=== PATIENT | female | born 1975 | race Two or more races ===

== ENCOUNTER 2023-08-20 08:14 | Emergency (ER) | payer OTHER ==
[~2023-08-20] VITALS: Ht 157.5 cm; Wt 65.7 kg
[2023-08-20] MEDS ORDERED: ONDANSETRON HCL 4 MG/2 ML VIAL IV ONE (08:30)
[2023-08-20] MEDS ORDERED: SODIUM CHLORIDE 0.9% 1,000 ML IVB ONE (08:30)
[2023-08-20 08:41] LABS: Urine Bacteria NONE SEEN /hpf (None Seen); Urine Blood Negative /uL (Negative); Urine Clarity Clear (Clear); Urine Protein, UAD Negative (Negative); Urine Specific Gravity 1.002 (1.001-1.035); Urine Urobilinogen Normal (Negative); Urine WBC <1 /hpf (0 - 5); Urine pH 6.5 (5.0-8.0)
[2023-08-20 08:54] LABS: Urine Color Straw (Yellow)
[2023-08-20 09:02] LABS: INR 1.05 (0.9-1.15); Partial Thromboplastin Time 29.9 SEC (24.5-34.5)
[2023-08-20 09:04] VITALS: TEMP 98.1
[2023-08-20 09:05] VITALS: PULSE 86; RESP 20; O2SAT 94
[2023-08-20 09:07] LABS: Alanine Aminotransferase 55 U/L (7-40); Albumin 5.1 g/dL (3.2-4.8); Alkaline Phosphatase 104 U/L (46-116); Anion Gap 6 (5-15); Aspartate Aminotransferase 15 U/L (13-40); BUN/Creatinine Ratio 9.5 (10.0-20.0); Blood Urea Nitrogen 7 mg/dL (9-23); Calcium 9.8 mg/dL (8.7-10.4); Carbon Dioxide 25 mmol/L (20-30); Chloride 104 mmol/L (98-107); Glucose 122 mg/dL (74-106); Lipase 47 U/L (12-53); Magnesium 1.9 mg/dL (1.6-2.6); Potassium 3.8 mmol/L (3.5-5.1); Sodium 135 mmol/L (136-145)
[2023-08-20 09:08] LABS: Bilirubin, Total 0.7 mg/dL (0.2-1.0); Total Protein 7.7 g/dL (5.7-8.2)
[2023-08-20 09:13] LABS: Basophils # (auto) 0 10 ^3/uL (0-0.2); Basophils % (auto) 0.6 % (0.0-2.0); Eosinophils # (auto) 0.1 10 ^3/uL (0-0.8); Eosinophils % (auto) 1.2 % (0.0-7.0); Hematocrit 42.3 % (36.0-46.0); Lymphocytes # (auto) 2.1 10 ^3/uL (0.4-5.4); Mean Corpuscular Hgb Conc. 35.3 g/dL (32.0-36.0); Mean Corpuscular Volume 87.8 fL (80.0-100.0); Monocytes # (auto) 0.3 10 ^3/uL (0-1.3); Neutrophils # (auto) 3.1 10 ^3/uL (1.6-8.6); Neutrophils % (auto) 55.2 % (37.0-80.0); Nucleated Red Blood Cells % 0.3 %; Red Blood Cells 4.82 10^6/uL (4.0-5.20); Red Cell Distribution Width 13.2 % (11.8-14.3); White Blood Cell 5.6 10^3/uL (4.4-10.8)
[2023-08-20 10:00] VITALS: BP 108/76; PULSE 82; RESP 17; O2SAT 97
[2023-08-20] MEDS ORDERED: PANTOPRAZOLE 40 MG/10 ML VIAL INJ IV ONE (11:15)
== END 2023-08-20 11:52 | disposition home or self-care (01) ==
LOC: ER 08:14 → EEVIPCON 08:14 → ER 11:43
DX: R10.9 Unspecified abdominal pain (principal); R10.2 Pelvic and perineal pain; E78.5 Hyperlipidemia, unspecified; Z98.51 Tubal ligation status
CPT/HCPCS: 36415; 74176; 76705; 80053; 81001; 83690; 83735; 84702; 85025; 85610; 85730; 96361; 96374; 96375; 99285; C9113; J2405; J7030

== ENCOUNTER 2025-02-20 14:53 | Inpatient (IN) | payer BC, OTHER ==
[~2025-02-20] VITALS: Ht 152.4 cm; Wt 64.8 kg
[~2025-02-20 14:53] MED LIST: AUG875T PO; AZITTAB PO; BISM1CHW5 PO; GENT0.3S10 EACHEYE; MET500T PO; MUPI2OIN2 EX; PANT40T PO; SUCR1TAB31 OR; SUMA50TA2 PO; TETR-37 PO
--- NOTE | 2025-02-20 15:56 | ED.PDOC ---
GI ASSESSMENT HPI Comments Lucero HPI: Poor Historian. HPI: 49y F who presents to the ED for chief complaint of nausea and vomiting and near-syncope - per spouse, pt has been having flu-like symptoms with cough, congestion and green phlegm for the past 3-4 days - pt has also not been able to eat and drink anything or keep any food down and started to get associated RUQ and RLQ abdominal pain - pt over the past 2 days has started to feel nauseous and has been having mul tiple vomiting episodes since - pt this afternoon, while using restroom, felt weak and fell to the floor with associated lightheadedness but no noted loss of consciousness - pt was found on the floor of bathroom by family members, and was brought to the ED for further evaluation - pt in the ED, otherwise has noted nausea and constipation but otherwise denies vomiting, diarrhea, fever, cough, chills, dysuria, hematuria, or hematemesis - pt in the ED, states she has been having fever of 103- 104 F over the past 3-4 days and pt has been taking Tylenol - pt in the ED, has noted stable vitals with temp of 97.7 F, BP of 122/81 and 02 sat of 99% on room air with all other vitals in normal range Past Medical History: GERD, HLD Past Surgical History: ectopic medications: crestor allergies: nkda Social History: denies tobacco use, denies ETOH use, denies drug use REVIEW OF SYSTEMS: CONSTITUTIONAL: Denies acute: , diaphoresis, chills, HEAD: Denies acute: headache, photophobia Eyes: Denies acute: Double vision, vision loss, eye pain, eye discharge. EARS: Denies acute: tinnitus, hearing loss, ear discharge, ear pain, THROAT: Denies acute: sore throat, swelling, difficulty swallowing , pain with swallowing, change in voice. NECK: Denies acute: neck pain, neck swelling, stiff neck. HEART: Denies acute : chest pain, palpitations, LUNGS: Denies acute: SOB, wheezing, hemoptysis ABDOMEN: Denies acute: diarrhea, melena , hematemesis, hematochezia SKIN: Denies acute: rash, redness, lesions, itchiness. EXTREMITIES: Denies acute: calf pain, numbness, tingling, weakness, denies pain in extremity. Denies acute: Low back pain. Neuro: Denies acute: focal neurological deficit, motor or sensory focal neurological deficit, tremors, seizure like activity, confusion, change in mental status, loss of bowel or bladder function, cauda equina like symptoms. : Denies acute: dysuria, hematuria, flank pain, increase in urinary frequency. PSYCH: Denies acute: hallucination, suicidal ideation, homicidal ideation. FEMALE: Denies acute: abnormal vaginal bleeding, foul odor, unusual discharge. PHYSICAL EXAM: General: no acute distress, awake and alert. Head: normocephalic, atraumatic. Neck: supple, trachea is midline, no swelling. Throat: Normal phonation. Eyes:, no erythema, no purulent discharge, no proptosis, no icterus. Heart: regular tachy, no significant murmur appreciated. Lungs: no apparent respiratory distress, Able to speak in full sentences. No wheezing, no rhonchi, no crackles. No stridors Clear to auscultation bilaterally. Abdomen: RLQ tender to palpation, non distended, soft, no guarding, no rebound, + bowel sounds. Neuro: Awake, Alert, oriented to name, self, situation, follows commands GCS=15. Speech is normal. Skin: no petechia, no purpura, no cyanosis, non-pale, not jaundice. Lower extremities: --no - Pitting edema no deformity, no focal swelling, no calf TTP. Makes eye contact. moves all four extremities. Face: no apparent facial droop. Ambulating in the ED independently. ED COURSE: Chief Complaint: Nausea/Vomiting Time Seen by MD: 14:57 Primary Care Provider: MAREK Arrieta Notes: Nurses Notes, Medications, Allergies Allergies: Coded Allergies: No Known Drug Allergy (Verified Allergy, Unknown, 08/20/23) Home Meds Active Scripts Sucralfate (CARAFATE) 1 Gm Tab, 1 GM OR QIDACHS, #60 TAB Prov:MIA WINCHESTER MD 12/08/24 Pantoprazole Sodium Sesquihydr (Pantoprazole Sodium) 40 Mg Tab, 40 MG PO BID, #20 TAB Prov:MIA WINCHESTER MD 12/08/24 Tetracycline Hcl (Tetracycline Hcl) 500 Mg Cap, 500 MG PO QID, #40 CAP Prov:MIA WINCHESTER MD 12/08/24 Metronidazole (Metronidazole) 500 Mg Tab, 500 MG PO TID for 10 Days, #30 TAB Prov:MIA WINCHESTER MD 12/08/24 Bismuth Subsalicylate (Bismuth Subsalicylate) 262 Mg Chw, 262 MG PO QID, #40 TAB.CHEW Prov:MIA WINCHESTER MD 12/08/24 Amoxicillin & Pot Clavulanate (AUGMENTIN TABLET) 875 Mg Tb, 875 MG PO BID, #20 TAB Prov:MIA WINCHESTER MD 09/17/24 Gentamicin Sulfate (Gentamicin Sulfate) 0.3 % Pattie, 1 DROP EACHEYE QID for 5 Days, #5 ML Prov:MIA WINCHESTER MD 08/10/24 Sumatriptan Succinate (Imitrex) 50 Mg Tab, 1 TAB PO UD PRN, #27 TAB 1 Refill one tab po qd prn migraine, may repeat in 2 hours, max 2 tabs/24 hours Prov:MIA WINCHESTER MD 07/04/24 Mupirocin (Pseudomonas Fluores (Mupirocin) 2 % Oin, 2 % EX BID for 5 Days, #22 GRAMS Prov:MIA WINCHESTER MD 04/28/24 Azithromycin (Zithromax Z-Adan) 250 Mg Tab, 250 MG PO DAILY, #6 TAB use as directed, 2 tabs 1st day then 1 po qd x 4 days Prov:MIA WINCHESTER MD 03/14/24 Information Source: Patient, Spouse Mode of Arrival: Ambulatory Brought in by: spouse Past Medical History PAST MEDICAL HISTORY: High Lipids 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 Was a procedure done?: No GI differential Dx Differential Diagnosis: Other (DDX include Diverticulitis, colitis, gastroenteritis, acute abdomen, SBO, enteritis, constipation, volvulus, appendicitis, Gallbladder disease, choledocolithiasis, ascending cholangitis, pancreatitis, intraAbdominal mass/neoplasm, hepatitis, UTI, pylonephritis, kidney stone, aneurysm, dissection, Inflammatory bowel disease, gastroparesis, ischemic bowel, ovarian torsion, ovarian cyst/mass, tubo-ovarian abscess, , ectopic , PID, STD.) X-Ray, Labs, Meds, VS Vital Signs Date Time Temp Pulse Resp B/P (MAP) Pulse Ox O2 Delivery O2 Flow Rate FiO2 02/20/25 20:30 97.9 86 16 113/82 (92) 98 97.9 02/20/25 19:35 Room Air* 0 21 02/20/25 19:00 85 20 110/70 (83) 02/20/25 17:27 92 02/20/25 17:00 85 19 118/69 (85) 02/20/25 16:00 108 02/20/25 15:41 97.7 98 12 122/81 (95) 99 97.7 02/20/25 15:00 Room Air* 0 21 02/20/25 15:00 98.6 106 28 120/79 (93) 99 98.6 Lab Test 02/20/25 19:17 02/20/25 19:13 02/20/25 17:11 02/20/25 17:10 Range/Units Urine Color Light-yellow Yellow Urine Clarity Clear Clear Urine pH 6.0 5.0-9.0 Urine Specific [place] 1.019 1.001-1.035 Urine Protein Negative Negative Urine Ketones 4+ H Negative Urine Blood 3+ H Negative /uL Urine Nitrite Negative Negative Urine Bilirubin Negative Negative Urine Urobilinogen Normal Negative mg/dL Urine Leukocyte Esterase Negative Negative /uL Urine RBC 102 0 - 4 /hpf Urine Microscopic WBC < 1 0-5 /HPF Urine Squamous Epithelial Cells Few <5 /hpf Urine Bacteria None seen None Seen /hpf Urine Mucus Few None Seen Urine Glucose Normal Normal mg/dL Urine Test Negative Negative Troponin I High Sensitivity < 3 L < 3 L </=34 ng/L Influenza Type A Antigen Negative Negative Influenza Type B Antigen Negative Negative SARS-CoV-2 Antigen (Rapid) Negative NEGATIVE Test 02/20/25 15:45 02/20/25 15:42 Range/Units POC Glucose 97 70-106 mg/dl White Blood Count 4.5 4.4-10.8 10^3/uL Red Blood Count 4.82 4.0-5.20 10^6/uL Hemoglobin 14.7 12.2-16.2 g/dL Hematocrit 41.2 36.0-46.0 % Mean Corpuscular Volume 85.6 80.0-100.0 fL Mean Corpuscular Hemoglobin 30.6 28.0-32.0 pg Mean Corpuscular Hemoglobin Concent 35.7 32.0-36.0 g/dL Red Cell Distribution Width 12.6 11.8-14.3 % Platelet Count 206 140-450 10^3/uL Mean Platelet Volume 8.7 6.9-10.8 fL Neutrophils (%) (Auto) 59.3 37.0-80.0 % Lymphocytes (%) (Auto) 33.9 10.0-50.0 % Monocytes (%) (Auto) 6.2 0.0-12.0 % Eosinophils (%) (Auto) 0.3 0.0-7.0 % Basophils (%) (Auto) 0.3 0.0-2.0 % Neutrophils # (Auto) 2.7 1.6-8.6 10 ^3/uL Lymphocytes # (Auto) 1.5 0.4-5.4 10 ^3/uL Monocytes # (Auto) 0.3 0-1.3 10 ^3/uL Eosinophils # (Auto) 0 0-0.8 10 ^3/uL Basophils # (Auto) 0 0-0.2 10 ^3/uL Nucleated Red Blood Cells 0.3 % Sodium Level 141 136-145 mmol/L Potassium Level 3.5 3.5-5.1 mmol/L Chloride Level 106 98-107 mmol/L Carbon Dioxide Level 23 20-31 mmol/L Anion Gap 12 5-15 Blood Urea Nitrogen 12 9-23 mg/dL Creatinine 0.71 0.550-1.02 mg/dL Glomerular Filtration Rate Calc 105 >90 mL/min BUN/Creatinine Ratio 16.9 10.0-20.0 Serum Glucose 91 74-106 mg/dL Lactic Acid Level 0.8 0.4-2.0 mmol/L Calcium Level 9.9 8.7-10.4 mg/dL Magnesium Level 2.4 1.6-2.6 mg/dL Total Bilirubin 0.4 0.2-1.0 mg/dL Aspartate Amino Transferase (AST) 25 13-40 U/L Alanine Aminotransferase (ALT) 39 7-40 U/L Alkaline Phosphatase 80 46-116 U/L Troponin I High Sensitivity < 3 L </=34 ng/L B-Type Natriuretic Peptide 3.15 0-100 pg/mL Total Protein 7.6 5.7-8.2 g/dL Albumin 5.3 H 3.2-4.8 g/dL Lipase 33 12-53 U/L Current Medications Medications (Trade) Dose Ordered Sig/Yazmin Route Start Time Stop Time Status Last Admin Ondansetron HCl (Zofran) 8 mg ONCE ONCE IV 02/20/25 15:30 02/20/25 15:31 DC 02/20/25 16:30 Sodium Chloride 1,000 ml @ 1,000 mls/hr Q1H ONCE IV 02/20/25 15:30 02/20/25 16:29 DC 02/20/25 16:30 Sodium Chloride 1,000 ml @ 1,000 mls/hr Q1H ONCE IV 02/20/25 20:45 02/20/25 21:44 DC 02/20/25 20:46 [place] [id number] Ph: [phone] DIAGNOSTIC IMAGING Diagnostic Imaging Report : [id number] Signed PATIENT: SIVAN ABRAMS ACCT: [id number] UNIT: [id number] : 1975 LOC: ER ROOM / BED: / AGE / SEX: 49 / F ADM STATUS: REG ER SERVICE 1520 ORDERING PHYSICIAN: YANG REBOLLEDO DO PROCEDURE(s): ABPLIV - CT AB PEL WITH IV CON ONLY REASON: abd pain n/v ORDER NUMBER(s): [id number], ACCESSION NUMBER(s): [id number] Exam: CT CT AB PEL WITH IV CON ONLY History: abd pain n/v Comparison Study: None available at time of dictation. Contrast: Type of contrast: Omnipaque 300 Contrast injected: 100 mL Contrast wasted: 0 TECHNIQUE: A digital impregnator carbon products image was obtained. During the uneventful, intravenous administration of contrast material, multislice data acquisition was obtained through the abdomen and pelvis. The data set was subsequently reconstructed into axial images. Images were reviewed on a work station using a combination of axial and multiplanar using a variety of window levels and settings. Radiation Dose Information: CT Dose: CTDI volume is 8.77 mGy. Dose-length product is 465.51 mGy*cm FINDINGS: Lung Bases: No acute or significant lung base finding. Normal heart size. No pleural or pericardial effusion. Liver: The liver is normal in size. No focal lesions. Normal hepatic vascular enhancement. Gallbladder and Biliary Tree: Unremarkable Spleen: Unremarkable Pancreas: The pancreas is normal in appearance without focal lesions or abnormal enhancement. Adrenal Glands: Unremarkable Kidneys: Kidneys demonstrate normal symmetric enhancement without focal lesions, calculi or hydronephrosis. Bladder: Unremarkable Bowel: The stomach is grossly normal in appearance. Small bowel and colon are normal in caliber and distribution. The appendix is not visualized; however, no secondary findings of acute appendicitis identified. Ascites: Absent Lymphadenopathy: No mesenteric, retroperitoneal or periportal lymphadenopathy. Abdominal Wall and Mesentery: Unremarkable. Vasculature: The visualized abdominal aorta is normal in size and caliber. Abdominal and pelvic vessels demonstrate normal enhancement. Pelvic Organs: Unremarkable Musculoskeletal: No aggressive focal bony lesions, acute fractures or dislocation. Soft tissues: Unremarkable. IMPRESSION: 1. No findings of bowel obstruction. 2. No findings of bowel obstruction. 3. No nephrolithiasis or hydronephrosis HS:Y All CT scans at this medical facility are performed using dose modulation techniques as appropriate to a performed exam including the following: Automated exposure control was utilized; adjustment of the MA and/or KV according to patient size; and use of iterative reconstruction technique. ATED BY: MANNY ENGLAND Jr., DO DICTATED DATE/TIME: 02/20/252017 SIGNED BY: MANNY ENGLAND Jr., DO SIGNED DATE/TIME: 02/20/252017 CC: [place] [address] Ph: [phone] DIAGNOSTIC IMAGING Diagnostic Imaging Report : [id number] Signed PATIENT: SIVAN ABRAMS ACCT: [id number] UNIT: [id number] : 1975 LOC: ER ROOM / BED: / AGE / SEX: 49 / F ADM STATUS: REG ER SERVICE 1520 ORDERING PHYSICIAN: YANG REBOLLEDO DO PROCEDURE(s): CXRP - CHEST PORTABLE REASON: syncope ORDER NUMBER(s): [id number], ACCESSION NUMBER(s): [id number] EXAM: XY CHEST PORTABLE TECHNIQUE: Single frontal chest radiograph CLINICAL HISTORY: syncope COMPARISON: None Findings/Impression: Frontal chest radiograph demonstrates no acute osseous or superficial soft tissue abnormalities. The trachea is midline. The cardiac silhouette and mediastinum are within normal limits. No pneumothorax, pleural effusions, or consolidations. 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 Patient requested that we admit the patient for observation for hydration since she has not been having any p.o. intake the last few days and anything she eats she is throwing up.) Reevaluation 1ST: Improved Patient Education/Counseling: Diagnosis, Treatment Family Education/Counseling: Diagnosis, Treatment Comments Patient presented with the above HPI.--near-syncope/abdominal pain/nausea and vomiting----workup was initiated. patient was found with the above mentioned jon gnosis. the following medications were ordered: please refer to order lists of meds and tests obtained by myself Dr. Rebolledo. Patient ED course and VS have been stabilized. Patient has been reassessed in the ED and remained in a stable condition. Pertinent incidental findings were discussed with the patient and/or family. Patient/family voices understanding and is agreeable with plan. Patient has been observed in the ED adequate length of time to insure improvement/stability. Escalation of care considered: Consideration of escalation to observation or admission Patient was ADMITTED to the medicine team for further evaluation and treatment of their presentation. Awaiting approval by [facility] per insurance requirement. Sepsis workup was initiated. Patient given fluid hydration. Antiemetics. All the reports of any imaging studies that were ordered by myself were reviewed by myself. Departure 1 Departure Time of Disposition: 21:12 Impression: Primary Impression: Abdominal pain of unknown etiology Additional Impressions: Nausea and vomiting Dehydration Near syncope Disposition: ADMITTED INPATIENT Admit to: [facility] Condition: Guarded Discharged With: Self Critical Care Note Critical Care Time?: No I personally scribed for YANG REBOLLEDO DO ([email or web address]) on 02/20/25 at 15:56. Electronically submitted by Celestina Mathias ([facility] I personally scribed for YANG REBOLLEDO DO ([email or web address]) on 02/20/25 at 16:26. Electronically submitted by Celestina Mathias ([facility] [place]). I personally scribed for YANG REBOLLEDO DO ([email or web address]) on 02/20/25 at 20:28. Electronically submitted by Celestina Mathias ([facility]). I personally scribed for YANG REBOLLEDO DO ([email or web address]) on 02/20/25 at 21:26. Electronically [facility] YANG REBOLLEDO DO Feb 20, 2025 15:56
[2025-02-20 16:12] LABS: Basophils # (auto) 0 10 ^3/uL (0-0.2); Basophils % (auto) 0.3 % (0.0-2.0); Eosinophils # (auto) 0 10 ^3/uL (0-0.8); Eosinophils % (auto) 0.3 % (0.0-7.0); Hematocrit 41.2 % (36.0-46.0); Hemoglobin 14.7 g/dL (12.2-16.2); Lymphocytes # (auto) 1.5 10 ^3/uL (0.4-5.4); Lymphocytes % (auto) 33.9 % (10.0-50.0); Mean Corpuscular Hemoglobin 30.6 pg (28.0-32.0); Mean Corpuscular Hgb Conc. 35.7 g/dL (32.0-36.0); Mean Corpuscular Volume 85.6 fL (80.0-100.0); Monocytes # (auto) 0.3 10 ^3/uL (0-1.3); Monocytes % (auto) 6.2 % (0.0-12.0); Neutrophils # (auto) 2.7 10 ^3/uL (1.6-8.6); Neutrophils % (auto) 59.3 % (37.0-80.0); Nucleated Red Blood Cells % 0.3 %; Platelet Count (auto) 206 10^3/uL (140-450); Red Blood Cells 4.82 10^6/uL (4.0-5.20); Red Cell Distribution Width 12.6 % (11.8-14.3); White Blood Cell 4.5 10^3/uL (4.4-10.8)
[2025-02-20 16:27] LABS: Alanine Aminotransferase 39 U/L (7-40); Albumin 5.3 g/dL (3.2-4.8); Alkaline Phosphatase 80 U/L (46-116); Anion Gap 12 (5-15); Aspartate Aminotransferase 25 U/L (13-40); BUN/Creatinine Ratio 16.9 (10.0-20.0); Blood Urea Nitrogen 12 mg/dL (9-23); Calcium 9.9 mg/dL (8.7-10.4); Carbon Dioxide 23 mmol/L (20-31); Chloride 106 mmol/L (98-107); Glucose 91 mg/dL (74-106); Lipase 33 U/L (12-53); Magnesium 2.4 mg/dL (1.6-2.6); Potassium 3.5 mmol/L (3.5-5.1); Sodium 141 mmol/L (136-145); Total Protein 7.6 g/dL (5.7-8.2)
[2025-02-20 16:28] LABS: Bilirubin, Total 0.4 mg/dL (0.2-1.0)
[2025-02-20] MEDS: SODIUM CHLORIDE 0.9% 1,000 ML IV ONE ×2 (16:30→20:46)
[2025-02-20] MEDS: ONDANSETRON HCL 4 MG/2 ML VIAL IV ONE (16:30)
[2025-02-20 19:18] LABS: Urine Bacteria None Seen /hpf (None Seen)
[2025-02-20 19:18] LABS: COVID19 ANTIGEN SOFIA FIA NEGATIVE (NEGATIVE)
[2025-02-20 19:19] LABS: Rapid Influenza A Negative (Negative); Rapid Influenza B Negative (Negative)
[2025-02-20 19:34] LABS: Urine Blood 3+ /uL (Negative); Urine Clarity Clear (Clear); Urine Color Light-Yellow (Yellow); Urine Mucus FEW (None Seen); Urine Protein, UAD Negative (Negative); Urine Specific Gravity 1.019 (1.001-1.035); Urine Squamous Epithelial Cell FEW /hpf (<5); Urine Urobilinogen Normal (Negative); Urine WBC < 1 /HPF (0-5)
[2025-02-20] MEDS: IOHEXOL 300 MG/ML 100ML BOTTLE IJ ONE (20:04)
--- NOTE | 2025-02-20 20:20 | DVH ---
Exam: CT CT AB PEL WITH IV CON ONLY History: abd pain n/v Comparison Study: None available at time of dictation. Contrast: Type of contrast: Omnipaque 300 Contrast injected: 100 mL Contrast wasted: 0 TECHNIQUE: A digital turbo electric operator image was obtained. During the uneventful, intravenous administration of c ontrast material, multislice data acquisition was obtained through the abdomen and pelvis. The data s et was subsequently reconstructed into axial images. Images were reviewed on a work station using a c ombination of axial and multiplanar using a variety of window levels and settings. Radiation Dose Information: CT Dose: CTDI volume is 8.77 mGy. Dose-length product is 465.51 mGy*cm FINDINGS: Lung Bases: No acute or significant lung base finding. Normal heart size. No pleural or pericardial effusion. Liver: The liver is normal in size. No focal lesions. Normal hepatic vascular enhancement. Gallbladder and Biliary Tree: Unremarkable Spleen: Unremarkable Pancreas: The pancreas is normal in appearance without focal lesions or abnormal enhancement. Adrenal Glands: Unremarkable Kidneys: Kidneys demonstrate normal symmetric enhancement without focal lesions, calculi or hydroneph rosis. Bladder: Unremarkable Bowel: The stomach is grossly normal in appearance. Small bowel and colon are normal in caliber and d istribution. The appendix is not visualized; however, no secondary findings of acute appendicitis bubba ntified. Ascites: Absent Lymphadenopathy: No mesenteric, retroperitoneal or periportal lymphadenopathy. Abdominal Wall and Mesentery: Unremarkable. Vasculature: The visualized abdominal aorta is normal in size and caliber. Abdominal and pelvic vess els demonstrate normal enhancement. Pelvic Organs: Unremarkable Musculoskeletal: No aggressive focal bony lesions, acute fractures or dislocation. Soft tissues: Unremarkable. IMPRESSION: 1. No findings of bowel obstruction. 2. No findings of bowel obstruction. 3. No nephrolithiasis or hydronephrosis HS:Y All CT scans at this medical facility are performed using dose modulation techniques as appropriate t o a performed exam including the following: Automated exposure control was utilized; adjustment of th e MA and/or KV according to patient size; and use of iterative reconstruction technique.
--- NOTE | 2025-02-20 20:54 | DVH ---
EXAM: XY CHEST PORTABLE TECHNIQUE: Single frontal chest radiograph CLINICAL HISTORY: syncope COMPARISON: None Findings/Impression: Frontal chest radiograph demonstrates no acute osseous or superficial soft tissue abnormalities. The trachea is midline. The cardiac silhouette and mediastinum are within normal limits. No pneumothorax, pleural effusions, or consolidations.
[2025-02-20] MEDS: fentaNYL CITRATE 100 MCG/2 ML VL IV ONE (23:31)
[2025-02-21] VITALS (7 sets, daily range): BP systolic 93–120; BP diastolic 57–87; PULSE 72–88; RESP 18–20; TEMP 97.7–98; O2SAT 93–95
[2025-02-21] MEDS ORDERED: MORPHINE SULFATE INJ 2 MG/ml SYRG IV PRN
[2025-02-21] MEDS ORDERED: HYDROcodone-ACET 5/325MG TAB PO PRN
[2025-02-21] MEDS: SODIUM CHLORIDE 0.9% 1,000 ML IV ONE (00:18)
[2025-02-21] MEDS: PANTOPRAZOLE 40 MG/10 ML VIAL INJ IV ONE (00:18)
--- NOTE | 2025-02-21 03:02 | DVHHP2 ---
History of Present Illness Reason for Visit: Abdominal pain History of Present Illness 49-year-old female presents for evaluation of abdominal pain pain patient presents with a four day history of right upper and lower quadrant abdominal pain with associated nausea and vomiting. Patient has not been able to eat or keep anything down her stomach. On arrival patient also noted to have a fever of 103. No diarrhea. No cardiac or respiratory complaints. Past Medical History Dyslipidemia and GERD Past Surgical History Ectopic Family History Noncontributory Smoke: No ALCOHOL: none Drugs: None Lives: with Family Review of Systems Review of Systems Review of systems are currently negative otherwise addressed in HPI. Allergies: Coded Allergies: No Known Drug Allergy (Verified Allergy, Unknown, 08/20/23) Medications Current Medications Medications Dose Ordered Sig/Yazmin Route Start Time Stop Time Status Last Admin Dose Admin Pantoprazole Sodium 40 mg DAILY IV 02/21/25 10:00 Acetaminophen/ Hydrocodone Bitart 1 tab Q4HP PRN PO 02/21/25 00:00 Ondansetron HCl 4 mg Q4HP PRN IV 02/21/25 00:00 Acetaminophen 650 mg Q6HP PRN PO 02/21/25 00:00 Morphine Sulfate 2 mg Q4HPRN PRN IV 02/21/25 00:00 Exam Vital Signs Vital Signs Date Time Temp Pulse Resp B/P (MAP) Pulse Ox O2 Delivery O2 Flow Rate FiO2 02/21/25 01:49 Room Air* 0 21 02/21/25 01:44 98.0 74 18 110/57 (74) 95 98.0 Exam Gen: 49-year-old female in mild distress Skin: Warm, dry, normal color and texture, no rash. HEENT: Normocephalic atraumatic, mucous membranes moist and pink. Neck: Cervical and supraclavicular nodes normal without enlargement, trachea is midline, thyroid gland is normal without masses. Pulmonary: Clear to auscultation and percussion bilaterally. Cardiac: Regular rate and rhythm. No murmur Abdomen: Soft, nontender, nondistended, bowel sounds present all 4 quadrants, no guarding, no rigidity, no organomegaly. Extremities: No cyanosis, clubbing, no edema Neuro: Cranial nerves II through XII grossly intact, normal affect and speech, no focal motor deficits. Labs/Xrays ORDERING PHYSICIAN: YANG REBOLLEDO DO PROCEDURE(s): ABPLIV - CT AB PEL WITH IV CON ONLY REASON: abd pain n/v ORDER NUMBER(s): [id number], ACCESSION NUMBER(s): [id number] Exam: CT CT AB PEL WITH IV CON ONLY History: abd pain n/v Comparison Study: None available at time of dictation. Contrast: Type of contrast: Omnipaque 300 Contrast injected: 100 mL Contrast wasted: 0 TECHNIQUE: A digital shirt maker image was obtained. During the uneventful, intravenous administration of contrast material, multislice data acquisition was obtained through the abdomen and pelvis. The data set was subsequently reconstructed into axial images. Images were reviewed on a work station using a combination of axial and multiplanar using a variety of window levels and settings. Radiation Dose Information: CT Dose: CTDI volume is 8.77 mGy. Dose-length product is 465.51 mGy*cm FINDINGS: Lung Bases: No acute or significant lung base finding. Normal heart size. No pleural or pericardial effusion. Liver: The liver is normal in size. No focal lesions. Normal hepatic vascular enhancement. Gallbladder and Biliary Tree: Unremarkable Spleen: Unremarkable Pancreas: The pancreas is normal in appearance without focal lesions or abnormal enhancement. Adrenal Glands: Unremarkable Kidneys: Kidneys demonstrate normal symmetric enhancement without focal lesions, calculi or hydronephrosis. Bladder: Unremarkable Bowel: The stomach is grossly normal in appearance. Small bowel and colon are normal in caliber and distribution. The appendix is not visualized; however, no secondary findings of acute appendicitis identified. Ascites: Absent Lymphadenopathy: No mesenteric, retroperitoneal or periportal lymphadenopathy. Abdominal Wall and Mesentery: Unremarkable. Vasculature: The visualized abdominal aorta is normal in size and caliber. Abdominal and pelvic vessels demonstrate normal enhancement. Pelvic Organs: Unremarkable Musculoskeletal: No aggressive focal bony lesions, acute fractures or dislocation. Soft tissues: Unremarkable. IMPRESSION: 1. No findings of bowel obstruction. 2. No findings of bowel obstruction. 3. No nephrolithiasis or hydronephrosis HS:Y All CT scans at this medical facility are performed using dose modulation techniques as appropriate to a performed exam including the following: Automated exposure control was utilized; adjustment of the MA and/or KV according to patient size; and use of iterative reconstruction technique. ATED BY: MANNY ENGLAND Jr., DO ORDERING PHYSICIAN: YANG REBOLLEDO DO PROCEDURE(s): CXRP - CHEST PORTABLE REASON: syncope ORDER NUMBER(s): [id number], ACCESSION NUMBER(s): [id number] EXAM: XY CHEST PORTABLE TECHNIQUE: Single frontal chest radiograph CLINICAL HISTORY: syncope COMPARISON: None Findings/Impression: Frontal chest radiograph demonstrates no acute osseous or superficial soft tissue abnormalities. The trachea is midline. The cardiac silhouette and mediastinum are within normal limits. No pneumothorax, pleural effusions, or consolidations. Labs Test 02/20/25 19:17 02/20/25 19:13 02/20/25 17:11 02/20/25 15:45 Range/Units Urine Color Light-yellow Yellow Urine Clarity Clear Clear Urine pH 6.0 5.0-9.0 Urine Specific [place] 1.019 1.001-1.035 Urine Protein Negative Negative Urine Ketones 4+ H Negative Urine Blood 3+ H Negative /uL Urine Nitrite Negative Negative Urine Bilirubin Negative Negative Urine Urobilinogen Normal Negative mg/dL Urine Leukocyte Esterase Negative Negative /uL Urine RBC 102 0 - 4 /hpf Urine Microscopic WBC < 1 0-5 /HPF Urine Squamous Epithelial Cells Few <5 /hpf Urine Bacteria None seen None Seen /hpf Urine Mucus Few None Seen Urine Glucose Normal Normal mg/dL Urine Test Negative Negative Troponin I High Sensitivity < 3 L </=34 ng/L Influenza Type A Antigen Negative Negative Influenza Type B Antigen Negative Negative SARS-CoV-2 Antigen (Rapid) Negative NEGATIVE POC Glucose 97 70-106 mg/dl Test 02/20/25 15:42 Range/Units White Blood Count 4.5 4.4-10.8 10^3/uL Red Blood Count 4.82 4.0-5.20 10^6/uL Hemoglobin 14.7 12.2-16.2 g/dL Hematocrit 41.2 36.0-46.0 % Mean Corpuscular Volume 85.6 80.0-100.0 fL Mean Corpuscular Hemoglobin 30.6 28.0-32.0 pg Mean Corpuscular Hemoglobin Concent 35.7 32.0-36.0 g/dL Red Cell Distribution Width 12.6 11.8-14.3 % Platelet Count 206 140-450 10^3/uL Mean Platelet Volume 8.7 6.9-10.8 fL Neutrophils (%) (Auto) 59.3 37.0-80.0 % Lymphocytes (%) (Auto) 33.9 10.0-50.0 % Monocytes (%) (Auto) 6.2 0.0-12.0 % Eosinophils (%) (Auto) 0.3 0.0-7.0 % Basophils (%) (Auto) 0.3 0.0-2.0 % Neutrophils # (Auto) 2.7 1.6-8.6 10 ^3/uL Lymphocytes # (Auto) 1.5 0.4-5.4 10 ^3/uL Monocytes # (Auto) 0.3 0-1.3 10 ^3/uL Eosinophils # (Auto) 0 0-0.8 10 ^3/uL Basophils # (Auto) 0 0-0.2 10 ^3/uL Nucleated Red Blood Cells 0.3 % Sodium Level 141 136-145 mmol/L Potassium Level 3.5 3.5-5.1 mmol/L Chloride Level 106 98-107 mmol/L Carbon Dioxide Level 23 20-31 mmol/L Anion Gap 12 5-15 Blood Urea Nitrogen 12 9-23 mg/dL Creatinine 0.71 0.550-1.02 mg/dL Glomerular Filtration Rate Calc 105 >90 mL/min BUN/Creatinine Ratio 16.9 10.0-20.0 Serum Glucose 91 74-106 mg/dL Lactic Acid Level 0.8 0.4-2.0 mmol/L Calcium Level 9.9 8.7-10.4 mg/dL Magnesium Level 2.4 1.6-2.6 mg/dL Total Bilirubin 0.4 0.2-1.0 mg/dL Aspartate Amino Transferase (AST) 25 13-40 U/L Alanine Aminotransferase (ALT) 39 7-40 U/L Alkaline Phosphatase 80 46-116 U/L B-Type Natriuretic Peptide 3.15 0-100 pg/mL Total Protein 7.6 5.7-8.2 g/dL Albumin 5.3 H 3.2-4.8 g/dL Lipase 33 12-53 U/L Assessment/Plan Assessment/Plan Assessment Acute abdominal pain Acute gastroenteritis Dehydration Plan Plan Admit the patient to [facility] to the hospitalist Pain management Maintenance IV fluids Clear liquid diet Continue treatment per orders. Plan discussed with: Patient My Orders Orders - DORIAN MACHUCA Procedure Category Date Status Time Pantoprazole PHA 02/21/25 In Process (Protonix) 10:00 Sodium Chloride 0.9% PHA 02/21/25 In Process 00:00 Admit ADMIT 02/20/25 Transmitted 23:51 Hydrocodone-Acet PHA 02/21/25 In Process 5/325mg Tab ([place] 00:00 Ondansetron Hcl PHA 02/21/25 In Process (Zofran) 00:00 Condition: Stable SAPPHIRE 02/20/25 In Process 23:51 Acetaminophen Tablet PHA 02/21/25 In Process (Tylenol Tablet) 00:00 Bedrest With Bathroom SAPPHIRE 02/20/25 In Process Privileg 23:51 Morphine Sulfate PHA 02/21/25 In Process Injection 00:00 Date of Service: Feb 20, 2025 Billing Provider: DORIAN MACHUCA Common Visit Codes: [id number] INP/OBS CARE (MOD) DORIAN MACHUCA Feb 21, 2025 03:02
[2025-02-21] MEDS: ONDANSETRON HCL 4 MG/2 ML VIAL IV PRN (04:52)
[2025-02-21] MEDS: ACETAMINOPHEN 325 MG TAB PO PRN (05:22)
[2025-02-21] MEDS ORDERED: D5W/SOD CHL 0.45% 1,000 ML IV SCH (10:00)
--- NOTE | 2025-02-21 10:38 | DVHINCON2 ---
Date of service: Feb 21, 2025 Family History: Patient reports no known family medical history. Allergies: Coded Allergies: No Known Drug Allergy (Verified Allergy, Unknown, 08/20/23) Home Meds Active Scripts Sucralfate (CARAFATE) 1 Gm Tab, 1 GM OR QIDACHS, #60 TAB Prov:MIA WINCHESTER MD 12/08/24 Pantoprazole Sodium Sesquihydr (Pantoprazole Sodium) 40 Mg Tab, 40 MG PO BID, #20 TAB Prov:MIA WINCHESTER MD 12/08/24 Tetracycline Hcl (Tetracycline Hcl) 500 Mg Cap, 500 MG PO QID, #40 CAP Prov:MIA WINCHESTER MD 12/08/24 Metronidazole (Metronidazole) 500 Mg Tab, 500 MG PO TID for 10 Days, #30 TAB Prov:MIA WINCHESTER MD 12/08/24 Bismuth Subsalicylate (Bismuth Subsalicylate) 262 Mg Chw, 262 MG PO QID, #40 TAB.CHEW Prov:MIA WINCHESTER MD 12/08/24 Amoxicillin & Pot Clavulanate (AUGMENTIN TABLET) 875 Mg Tb, 875 MG PO BID, #20 TAB Prov:MIA WINCHESTER MD 09/17/24 Gentamicin Sulfate (Gentamicin Sulfate) 0.3 % Pattie, 1 DROP EACHEYE QID for 5 Days, #5 ML Prov:MIA WINHCESTER MD 08/10/24 Sumatriptan Succinate (Imitrex) 50 Mg Tab, 1 TAB PO UD PRN, #27 TAB 1 Refill one tab po qd prn migraine, may repeat in 2 hours, max 2 tabs/24 hours Prov:MIA WINCHESTER MD 07/04/24 Mupirocin (Pseudomonas Fluores (Mupirocin) 2 % Oin, 2 % EX BID for 5 Days, #22 GRAMS Prov:MIA WINCHESTER MD 04/28/24 Azithromycin (Zithromax Z-Adan) 250 Mg Tab, 250 MG PO DAILY, #6 TAB use as directed, 2 tabs 1st day then 1 po qd x 4 days Prov:MIA WINCHESTER MD 03/14/24 Current Medications Current Medications Medications (Trade) Dose Ordered Sig/Yazmin Route PRN Reason Start Time Stop Time Status Last Admin Pantoprazole Sodium (Protonix) 40 mg DAILY IV 02/21/25 10:00 Acetaminophen/ Hydrocodone Bitart ([place]gs 5/325MG Tab) 1 tab Q4HP PRN PO MODERATE PAIN (4-6 PAIN SCALE) 02/21/25 00:00 02/21/25 09:53 DC Ondansetron HCl (Zofran) 4 mg Q4HP PRN IV NAUSEA / VOMITING 02/21/25 00:00 Hold 02/21/25 08:02 Acetaminophen (Tylenol Tablet) 650 mg Q6HP PRN PO PAIN SCALE 1-3 OR TEMP>100.4 02/21/25 00:00 02/21/25 05:22 Morphine Sulfate 2 mg Q4HPRN PRN IV SEVERE PAIN (7-10 PAIN SCALE) 02/21/25 00:00 Dextrose/Sodium Chloride 1,000 ml @ 100 mls/hr Q10H IV 02/21/25 10:00 Metoclopramide HCl (Reglan Injection) 5 mg Q6HPRN PRN IV NAUSEA / VOMITING 02/21/25 10:00 Vital Signs Vital Signs Date Time Temp Pulse Resp B/P (MAP) Pulse Ox O2 Delivery O2 Flow Rate FiO2 02/21/25 09:00 98.0 85 18 120/68 (85) 93 98.0 02/21/25 01:49 Room Air* 0 21 Labs/Diagnostic Data Labs Test 02/20/25 19:17 02/20/25 19:13 02/20/25 17:11 02/20/25 15:45 Range/Units Urine Color Light-yellow Yellow Urine Clarity Clear Clear Urine pH 6.0 5.0-9.0 Urine Specific [place] 1.019 1.001-1.035 Urine Protein Negative Negative Urine Ketones 4+ H Negative Urine Blood 3+ H Negative /uL Urine Nitrite Negative Negative Urine Bilirubin Negative Negative Urine Urobilinogen Normal Negative mg/dL Urine Leukocyte Esterase Negative Negative /uL Urine RBC 102 0 - 4 /hpf Urine Microscopic WBC < 1 0-5 /HPF Urine Squamous Epithelial Cells Few <5 /hpf Urine Bacteria None seen None Seen /hpf Urine Mucus Few None Seen Urine Glucose Normal Normal mg/dL Urine Test Negative Negative Troponin I High Sensitivity < 3 L </=34 ng/L Influenza Type A Antigen Negative Negative Influenza Type B Antigen Negative Negative SARS-CoV-2 Antigen (Rapid) Negative NEGATIVE POC Glucose 97 70-106 mg/dl Test 02/20/25 15:42 Range/Units White Blood Count 4.5 4.4-10.8 10^3/uL Red Blood Count 4.82 4.0-5.20 10^6/uL Hemoglobin 14.7 12.2-16.2 g/dL Hematocrit 41.2 36.0-46.0 % Mean Corpuscular Volume 85.6 80.0-100.0 fL Mean Corpuscular Hemoglobin 30.6 28.0-32.0 pg Mean Corpuscular Hemoglobin Concent 35.7 32.0-36.0 g/dL Red Cell Distribution Width 12.6 11.8-14.3 % Platelet Count 206 140-450 10^3/uL Mean Platelet Volume 8.7 6.9-10.8 fL Neutrophils (%) (Auto) 59.3 37.0-80.0 % Lymphocytes (%) (Auto) 33.9 10.0-50.0 % Monocytes (%) (Auto) 6.2 0.0-12.0 % Eosinophils (%) (Auto) 0.3 0.0-7.0 % Basophils (%) (Auto) 0.3 0.0-2.0 % Neutrophils # (Auto) 2.7 1.6-8.6 10 ^3/uL Lymphocytes # (Auto) 1.5 0.4-5.4 10 ^3/uL Monocytes # (Auto) 0.3 0-1.3 10 ^3/uL Eosinophils # (Auto) 0 0-0.8 10 ^3/uL Basophils # (Auto) 0 0-0.2 10 ^3/uL Nucleated Red Blood Cells 0.3 % Sodium Level 141 136-145 mmol/L Potassium Level 3.5 3.5-5.1 mmol/L Chloride Level 106 98-107 mmol/L Carbon Dioxide Level 23 20-31 mmol/L Anion Gap 12 5-15 Blood Urea Nitrogen 12 9-23 mg/dL Creatinine 0.71 0.550-1.02 mg/dL Glomerular Filtration Rate Calc 105 >90 mL/min BUN/Creatinine Ratio 16.9 10.0-20.0 Serum Glucose 91 74-106 mg/dL Lactic Acid Level 0.8 0.4-2.0 mmol/L Calcium Level 9.9 8.7-10.4 mg/dL Magnesium Level 2.4 1.6-2.6 mg/dL Total Bilirubin 0.4 0.2-1.0 mg/dL Aspartate Amino Transferase (AST) 25 13-40 U/L Alanine Aminotransferase (ALT) 39 7-40 U/L Alkaline Phosphatase 80 46-116 U/L B-Type Natriuretic Peptide 3.15 0-100 pg/mL Total Protein 7.6 5.7-8.2 g/dL Albumin 5.3 H 3.2-4.8 g/dL Lipase 33 12-53 U/L Assessment [id number] RUQ PAIN AFEBRILE VSS ABD SOFT TENDER RUQ AND R MID ABD NO BM FLATUS + CT SCAN NOTED NO ACUTE PROCESS R/O CONSTIPATION SBO KEEP NPO CLOSE OBSERVATION GI EVAL INDICATED CONSIDER GASTROGRAFIN STUDY R/O SBO Plan discussed with: Patient ALLAN BREEN MD Feb 21, 2025 10:37
--- NOTE | 2025-02-21 11:05 | DVHPN2 ---
Subjective Still c/o nausea and vomiting Vomited x2 since this am c/o abdominal pain RUQ & RLQ Changes from previous H/P or p: Changes Objective Vitals Vital Signs Date Time Temp Pulse Resp B/P (MAP) Pulse Ox O2 Delivery O2 Flow Rate FiO2 02/21/25 09:00 98.0 85 18 120/68 (85) 93 98.0 02/21/25 01:49 Room Air* 0 21 Intake/Output Intake and Output 02/21/25 07:00 Intake Total 2120 ml Output Total 0 ml Balance 2120 ml Intake Oral 30 ml IV Total 2090 ml Output Urine Total 0 ml # Voids 1 General Appearance: Alert, Oriented X3, Cooperative, moderate distress Lungs: Clear to auscultation, Normal air movement Cardiovascular: Regular rate, Normal S1, Normal S2, No murmurs Abdomen: Normal bowel sounds, Soft, Other (Severe tenderness RLQ and epigastric area) Medications Current Medications Medications Dose Ordered Sig/Yazmin Route Start Time Stop Time Status Last Admin Dose Admin Pantoprazole Sodium 40 mg DAILY IV 02/21/25 10:00 Ondansetron HCl 4 mg Q4HP PRN IV 02/21/25 00:00 Hold 02/21/25 08:02 4 MG Acetaminophen 650 mg Q6HP PRN PO 02/21/25 00:00 02/21/25 05:22 650 MG Morphine Sulfate 2 mg Q4HPRN PRN IV 02/21/25 00:00 Dextrose/Sodium Chloride 1,000 ml @ 100 mls/hr Q10H IV 02/21/25 10:00 Metoclopramide HCl 5 mg Q6HPRN PRN IV 02/21/25 10:00 Laboratory Results Laboratory Tests 02/20/25 15:42 Chemistry Test 02/20/25 15:42 Albumin 5.3 g/dL (3.2-4.8) H Calcium Level 9.9 mg/dL (8.7-10.4) Magnesium Level 2.4 mg/dL (1.6-2.6) Total Protein 7.6 g/dL (5.7-8.2) Lipid panel Test 02/20/25 15:42 Lipase 33 U/L (12-53) Cardiac Markers Test 02/20/25 15:42 B-Type Natriuretic Peptide 3.15 pg/mL (0-100) LFT Test 02/20/25 15:42 Alanine Aminotransferase (ALT) 39 U/L (7-40) Alkaline Phosphatase 80 U/L (46-116) Aspartate Amino Transferase (AST) 25 U/L (13-40) Total Bilirubin 0.4 mg/dL (0.2-1.0) Urinalysis Test 02/20/25 19:17 Urine Color Light-yellow (Yellow) Urine Clarity Clear (Clear) Urine pH 6.0 (5.0-9.0) Urine Specific [place] 1.019 (1.001-1.035) Urine Protein Negative (Negative) Urine Ketones 4+ (Negative) H Urine Blood 3+ /uL (Negative) H Urine Nitrite Negative (Negative) Urine Bilirubin Negative (Negative) Urine Urobilinogen Normal mg/dL (Negative) Urine Leukocyte Esterase Negative /uL (Negative) Urine RBC 102 /hpf (0 - 4) Urine Microscopic WBC < 1 /HPF (0-5) Urine Squamous Epithelial Cells Few /hpf (<5) Urine Bacteria None seen /hpf (None Seen) Urine Mucus Few (None Seen) Urine Glucose Normal mg/dL (Normal) Urine Test Negative (Negative) Assessment/Plan Assessment/Plan Intractable nausea and vomiting Abdominal pain Dehydration Acute viral syndrome h/o GERD Mixed hyperlipidemia PLAN: IV fluids: D51/2 NS NPO Order abd US to rule out gallbladder disease vs appendicitis G. Surgery consult GI consult IV Protonix IV Zofran is not effective, Add Reglan IV prn Plan discussed with: Patient My Orders Orders - MIA WINCHESTER MD Procedure Category Date Status Time Abdomen Limited US 02/21/25 Taken 09:48 * Surgical Consult CONS 02/21/25 Transmitted Complete Blood Count LAB 02/21/25 Logged 09:51 Comprehensive LAB 02/21/25 Logged Metabolic Panel 09:51 Magnesium LAB 02/21/25 Logged 09:51 Npo (Nothing By DIET 02/21/25 Transmitted Mouth) Diet Lunch D5w/Sod Chl 0.45% PHA 02/21/25 In Process (D5w 1/2ns) 10:00 Metoclopramide PHA 02/21/25 In Process Injection (Reglan 10:00 * Gi Dvh Grade Tamper CONS 02/21/25 Transmitted 10:00 Date of Service: Feb 21, 2025 Billing Provider: MIA WINCHESTER MD Common Visit Codes: NOT BILLABLE MIA WINCHESTER MD Feb 21, 2025 11:05
--- NOTE | 2025-02-21 11:31 | DVHINCON2 ---
DATE OF CONSULTATION: 02/21/2025 HISTORY OF PRESENT ILLNESS: She is 49 years old, coming in with abdominal pain, nausea, vomiting, constipation for a few days. No diarrhea. No hematemesis, melena. No bleeding per rectum. PAST MEDICAL HISTORY: GERD. No hypertension, diabetes. PAST SURGICAL HISTORY: Ectopic surgery several years ago. PHYSICAL EXAMINATION: VITAL SIGNS: Afebrile, stable signs. HEENT: With no evidence of pallor, cyanosis, or jaundice. NECK: Supple, nontender with no thyromegaly, lymphadenopathy. CHEST AND LUNGS: Clear. HEART: Within normal limits. ABDOMEN: Soft. She is tender in the right upper quadrant and mid abdomen. Minimally tender in the right lower quadrant with no rebound. EXTREMITIES: Unremarkable. NEUROLOGIC: Not assessed. CLINICAL IMPRESSION: Rule out cholecystitis, rule out ileus and rule out small bowel obstruction. PLAN: At this point, needs conservative management. No acute surgical intervention is indicated at this time and she needs to be kept n.p.o. Ultrasound of the right upper quadrant to rule out cholelithiasis and also consider Gastrografin study followthrough to determine the need for surgery. MD BERNICE Cabrales/ZARINA/CONSUELO TID: [id number] RECEIPT: [id number] cc: Marilin Garibay MD, Vaibhav Beltran NP
[2025-02-21 11:43] LABS: Basophils # (auto) 0 10 ^3/uL (0-0.2); Basophils % (auto) 0.5 % (0.0-2.0); Eosinophils # (auto) 0 10 ^3/uL (0-0.8); Eosinophils % (auto) 0.8 % (0.0-7.0); Hematocrit 35.8 % (36.0-46.0); Hemoglobin 12.7 g/dL (12.2-16.2); Lymphocytes # (auto) 1.5 10 ^3/uL (0.4-5.4); Lymphocytes % (auto) 40.8 % (10.0-50.0); Mean Corpuscular Hgb Conc. 35.4 g/dL (32.0-36.0); Mean Corpuscular Volume 87.6 fL (80.0-100.0); Monocytes # (auto) 0.2 10 ^3/uL (0-1.3); Monocytes % (auto) 6.4 % (0.0-12.0); Neutrophils # (auto) 1.9 10 ^3/uL (1.6-8.6); Neutrophils % (auto) 51.5 % (37.0-80.0); Nucleated Red Blood Cells % 0.3 %; Platelet Count (auto) 170 10^3/uL (140-450); Red Blood Cells 4.09 10^6/uL (4.0-5.20); Red Cell Distribution Width 12.5 % (11.8-14.3); White Blood Cell 3.6 10^3/uL (4.4-10.8)
[2025-02-21 12:11] LABS: Alanine Aminotransferase 30 U/L (7-40); Albumin 4.6 g/dL (3.2-4.8); Alkaline Phosphatase 67 U/L (46-116); Anion Gap 12 (5-15); Aspartate Aminotransferase 20 U/L (13-40); Carbon Dioxide 22 mmol/L (20-31); Chloride 104 mmol/L (98-107); Glucose 84 mg/dL (74-106); Magnesium 2.1 mg/dL (1.6-2.6); Sodium 138 mmol/L (136-145)
[2025-02-21 12:12] LABS: Total Protein 6.9 g/dL (5.7-8.2)
[2025-02-21 12:13] LABS: Bilirubin, Total 0.5 mg/dL (0.2-1.0)
[2025-02-21 12:14] LABS: BUN/Creatinine Ratio 7.9 (10.0-20.0); Blood Urea Nitrogen < 5 mg/dL (9-23); Potassium 3.1 mmol/L (3.5-5.1)
[2025-02-21] MEDS: PANTOPRAZOLE 40 MG/10 ML VIAL INJ IV SCH (12:49)
[2025-02-21] MEDS: METOCLOPRAMIDE HCL 5MG/ml INJ 2ml VIAL IV PRN (12:50)
[2025-02-21] MEDS: D5W/SOD CHL 0.45%/KCL 40MEQ 1,000 ML IV SCH ×2 (12:50→21:35)
--- NOTE | 2025-02-21 13:34 | DVH ---
INDICATION: abd pain TECHNIQUE: Multiple real-time sonographic images of the abdomen were obtained. COMPARISON: US GALLBLADDER on DOS: 08/20/23 FINDINGS: The liver is homogenous in echogenicity. The liver measures 16 cm. No intrahepatic biliary ductal dilatation is noted. The gallbladder wall measures 0.17 cm and is unremarkable. No gallstones or sludge is seen. The co mmon duct measures 0.35 cm and is unremarkable. No pericholecystic fluid is noted. Negative ultrasou nd Ojeda's sign The right kidney measures 10.2 cm. No hydronephrosis. The pancreas is not well visualized due to obscuration from bowel gas. IMPRESSION: 1. 16 cm liver. 2. Gallbladder appears normal 3. Right kidney is 10.2 cm in length with no hydronephrosis. HS:Y
--- NOTE | 2025-02-21 14:51 | DVHINCON2 ---
Date of service: Feb 21, 2025 Referring Physician Vaibhav Beltran Reason for Consultation Nausea vomiting and abdominal pain History of Present Illness 49-year-old female presents for evaluation of abdominal pain pain patient presents with a four day history of right upper and lower quadrant abdominal pain with associated nausea and vomiting. Patient has not been able to eat or keep anything down her stomach. On arrival patient also noted to have a fever of 103. No diarrhea. No cardiac or respiratory complaints. Patient was seen at bedside and she is starting to feel better. There was no nausea vomiting. There was no GI bleeding and no bowel movement recorded yet. Labs, CT scan and right upper quadrant ultrasound were negative Past Medical History Past Medical History Dyslipidemia and GERD Past Surgical History Past Surgical History Ectopic Family History: Patient reports no known family medical history. Allergies: Coded Allergies: No Known Drug Allergy (Verified Allergy, Unknown, 08/20/23) Home Meds Active Scripts Sucralfate (CARAFATE) 1 Gm Tab, 1 GM OR QIDACHS, #60 TAB Prov:MIA WINCHESTER MD 12/08/24 Pantoprazole Sodium Sesquihydr (Pantoprazole Sodium) 40 Mg Tab, 40 MG PO BID, #20 TAB Prov:MIA WINCHESTER MD 12/08/24 Tetracycline Hcl (Tetracycline Hcl) 500 Mg Cap, 500 MG PO QID, #40 CAP Prov:MIA WINCHESTER MD 12/08/24 Metronidazole (Metronidazole) 500 Mg Tab, 500 MG PO TID for 10 Days, #30 TAB Prov:MIA WINCHESTER MD 12/08/24 Bismuth Subsalicylate (Bismuth Subsalicylate) 262 Mg Chw, 262 MG PO QID, #40 TAB.CHEW Prov:MIA WINCHESTER MD 12/08/24 Amoxicillin & Pot Clavulanate (AUGMENTIN TABLET) 875 Mg Tb, 875 MG PO BID, #20 TAB Prov:MIA WINCHESTER MD 09/17/24 Gentamicin Sulfate (Gentamicin Sulfate) 0.3 % Pattie, 1 DROP EACHEYE QID for 5 Days, #5 ML Prov:MIA WINCHESTER MD 08/10/24 Sumatriptan Succinate (Imitrex) 50 Mg Tab, 1 TAB PO UD PRN, #27 TAB 1 Refill one tab po qd prn migraine, may repeat in 2 hours, max 2 tabs/24 hours Prov:MIA WINCHESTER MD 07/04/24 Mupirocin (Pseudomonas Fluores (Mupirocin) 2 % Oin, 2 % EX BID for 5 Days, #22 GRAMS Prov:MIA WINCHESTER MD 04/28/24 Azithromycin (Zithromax Z-Adan) 250 Mg Tab, 250 MG PO DAILY, #6 TAB use as directed, 2 tabs 1st day then 1 po qd x 4 days Prov:MIA WINCHESTER MD 03/14/24 Current Medications Current Medications Medications (Trade) Dose Ordered Sig/Yazmin Route PRN Reason Start Time Stop Time Status Last Admin Pantoprazole Sodium (Protonix) 40 mg DAILY IV 02/21/25 10:00 02/21/25 12:49 Acetaminophen/ Hydrocodone Bitart ([place] 5/325MG Tab) 1 tab Q4HP PRN PO MODERATE PAIN (4-6 PAIN SCALE) 02/21/25 00:00 02/21/25 09:53 DC Ondansetron HCl (Zofran) 4 mg Q4HP PRN IV NAUSEA / VOMITING 02/21/25 00:00 Hold 02/21/25 08:02 Acetaminophen (Tylenol Tablet) 650 mg Q6HP PRN PO PAIN SCALE 1-3 OR TEMP>100.4 02/21/25 00:00 02/21/25 05:22 Morphine Sulfate 2 mg Q4HPRN PRN IV SEVERE PAIN (7-10 PAIN SCALE) 02/21/25 00:00 Dextrose/Sodium Chloride 1,000 ml @ 100 mls/hr Q10H IV 02/21/25 10:00 02/21/25 12:28 DC Metoclopramide HCl (Reglan Injection) 5 mg Q6HPRN PRN IV NAUSEA / VOMITING 02/21/25 10:00 02/21/25 12:50 Potassium Chloride/Dextrose/ Sod Cl 1,000 ml @ 100 mls/hr Q10H IV 02/21/25 12:30 02/21/25 12:50 Vital Signs Vital Signs Date Time Temp Pulse Resp B/P (MAP) Pulse Ox O2 Delivery O2 Flow Rate FiO2 02/21/25 09:00 98.0 85 18 120/68 (85) 93 98.0 02/21/25 01:49 Room Air* 0 21 Physical Exam Gen: 49-year-old female in no distress; sleeping Skin: Warm, dry, normal color and texture, no rash. HEENT: Normocephalic atraumatic, mucous membranes moist and pink. Neck: Cervical and supraclavicular nodes normal without enlargement, trachea is midline, thyroid gland is normal without masses. Pulmonary: Clear to auscultation and percussion bilaterally. Cardiac: Regular rate and rhythm. No murmur Abdomen: Soft, nontender, nondistended, bowel sounds present all 4 quadrants, no guarding, no rigidity, no organomegaly. Extremities: No cyanosis, clubbing, no edema Neuro: Cranial nerves II through XII grossly intact, normal affect and speech, no focal motor deficits. Labs/Diagnostic Data Labs Test 02/21/25 11:28 02/20/25 19:17 02/20/25 19:13 02/20/25 17:11 Range/Units White Blood Count 3.6 L 4.4-10.8 10^3/uL Red Blood Count 4.09 4.0-5.20 10^6/uL Hemoglobin 12.7 12.2-16.2 g/dL Hematocrit 35.8 #L 36.0-46.0 % Mean Corpuscular Volume 87.6 80.0-100.0 fL Mean Corpuscular Hemoglobin 31.0 28.0-32.0 pg Mean Corpuscular Hemoglobin Concent 35.4 32.0-36.0 g/dL Red Cell Distribution Width 12.5 11.8-14.3 % Platelet Count 170 140-450 10^3/uL Mean Platelet Volume 7.9 6.9-10.8 fL Neutrophils (%) (Auto) 51.5 37.0-80.0 % Lymphocytes (%) (Auto) 40.8 10.0-50.0 % Monocytes (%) (Auto) 6.4 0.0-12.0 % Eosinophils (%) (Auto) 0.8 0.0-7.0 % Basophils (%) (Auto) 0.5 0.0-2.0 % Neutrophils # (Auto) 1.9 1.6-8.6 10 ^3/uL Lymphocytes # (Auto) 1.5 0.4-5.4 10 ^3/uL Monocytes # (Auto) 0.2 0-1.3 10 ^3/uL Eosinophils # (Auto) 0 0-0.8 10 ^3/uL Basophils # (Auto) 0 0-0.2 10 ^3/uL Nucleated Red Blood Cells 0.3 % Sodium Level 138 136-145 mmol/L Potassium Level 3.1 L 3.5-5.1 mmol/L Chloride Level 104 98-107 mmol/L Carbon Dioxide Level 22 20-31 mmol/L Anion Gap 12 5-15 Blood Urea Nitrogen < 5 L 9-23 mg/dL Creatinine 0.63 0.550-1.02 mg/dL Glomerular Filtration Rate Calc 110 >90 mL/min BUN/Creatinine Ratio 7.9 L 10.0-20.0 Serum Glucose 84 74-106 mg/dL Calcium Level 9.0 8.7-10.4 mg/dL Magnesium Level 2.1 1.6-2.6 mg/dL Total Bilirubin 0.5 0.2-1.0 mg/dL Aspartate Amino Transferase (AST) 20 13-40 U/L Alanine Aminotransferase (ALT) 30 7-40 U/L Alkaline Phosphatase 67 46-116 U/L Total Protein 6.9 5.7-8.2 g/dL Albumin 4.6 3.2-4.8 g/dL Urine Color Light-yellow Yellow Urine Clarity Clear Clear Urine pH 6.0 5.0-9.0 Urine Specific [place] 1.019 1.001-1.035 Urine Protein Negative Negative Urine Ketones 4+ H Negative Urine Blood 3+ H Negative /uL Urine Nitrite Negative Negative Urine Bilirubin Negative Negative Urine Urobilinogen Normal Negative mg/dL Urine Leukocyte Esterase Negative Negative /uL Urine RBC 102 0 - 4 /hpf Urine Microscopic WBC < 1 0-5 /HPF Urine Squamous Epithelial Cells Few <5 /hpf Urine Bacteria None seen None Seen /hpf Urine Mucus Few None Seen Urine Glucose Normal Normal mg/dL Urine Test Negative Negative Troponin I High Sensitivity < 3 L </=34 ng/L Influenza Type A Antigen Negative Negative Influenza Type B Antigen Negative Negative SARS-CoV-2 Antigen (Rapid) Negative NEGATIVE Test 02/20/25 15:45 02/20/25 15:42 Range/Units POC Glucose 97 70-106 mg/dl Lactic Acid Level 0.8 0.4-2.0 mmol/L B-Type Natriuretic Peptide 3.15 0-100 pg/mL Lipase 33 12-53 U/L Problems(with codes): (1) Gastroenteritis (2) Nausea and vomiting (3) Dehydration (4) Abdominal pain of unknown etiology Plan/Recommendation Assessment plan I believe the patient may have developed acute food poisoning or gastroenteritis Fever has defervesced and abdominal symptoms are improving We will start her on a clear liquid diet advance as tolerated Continue supportive care; slightly low white count today suggestive possibly a viral etiology Protonix 40 mg p.o. daily; IV fluid hydration Outpatient follow up with me in 4-6 weeks to discuss elective panendoscopy Once again thank you for allowing me to participate in the care of this patient Plan discussed with: Patient JOSÉ BREEN MD Feb 21, 2025 14:51
--- NOTE | 2025-02-21 17:13 | DVH ---
INDICATION: RLQ pain TECHNIQUE: Graded compression technique along with Multiple real-time sonographic images were obtain ed for evaluation of the right lower quadrant. FINDINGS: The appendix was not visualized. No free fluid or lymph nodes are seen on this exam. IMPRESSION: 1.Nonvisualization of the appendix, thus cannot exclude appendicitis. HS:Y
[2025-02-22] VITALS (12 sets, daily range): BP systolic 107–127; BP diastolic 58–78; PULSE 7–91; RESP 16–22; TEMP 97.4–98.9; O2SAT 96–100
[2025-02-22 06:39] LABS: Hematocrit 37.3 % (36.0-46.0); Hemoglobin 13.2 g/dL (12.2-16.2); Mean Corpuscular Hemoglobin 30.6 pg (28.0-32.0); Mean Corpuscular Hgb Conc. 35.3 g/dL (32.0-36.0); Mean Corpuscular Volume 86.6 fL (80.0-100.0); Platelet Count (auto) 186 10^3/uL (140-450); Red Blood Cells 4.31 10^6/uL (4.0-5.20); Red Cell Distribution Width 12.6 % (11.8-14.3); White Blood Cell 3.4 10^3/uL (4.4-10.8)
[2025-02-22 06:44] LABS: INR 1.03 (0.9-1.15); Partial Thromboplastin Time 28.8 SEC (24.5-34.5); Prothrombin Time 10.9 sec (9.3-11.8)
[2025-02-22 06:57] LABS: Alanine Aminotransferase 24 U/L (7-40); Albumin 4.6 g/dL (3.2-4.8); Alkaline Phosphatase 62 U/L (46-116); Anion Gap 11 (5-15); Aspartate Aminotransferase 18 U/L (13-40); Bilirubin, Total 0.4 mg/dL (0.2-1.0); Calcium 9.4 mg/dL (8.7-10.4); Carbon Dioxide 21 mmol/L (20-31); Glucose 99 mg/dL (74-106); Magnesium 2.3 mg/dL (1.6-2.6); Sodium 139 mmol/L (136-145); Total Protein 6.7 g/dL (5.7-8.2)
[2025-02-22 06:58] LABS: BUN/Creatinine Ratio 8.6 (10.0-20.0); Blood Urea Nitrogen < 5 mg/dL (9-23); Chloride 107 mmol/L (98-107); Potassium 3.4 mmol/L (3.5-5.1)
[2025-02-22 07:03] LABS: Band Neutrophils % (manual) 0; Basophils % (manual) 0 (0.0-2.0); Blast Cells 0; Eosinophils % (manual) 0 (0-7); Metamyelocytes % 0; Myelocytes % 0; Promyelocytes % 0; Reactive Lymphocytes 0
[2025-02-22 08:08] LABS: Lymphocytes % (manual) 63 (10.0-50.0); Monocytes % (manual) 8 (0-12); Platelet Estimate Adequate
[2025-02-22] MEDS ORDERED: ONDANSETRON HCL 4 MG/2 ML VIAL IV PRN (08:45)
[2025-02-22] MEDS ORDERED: SODIUM CHLORIDE LOCK 10 ML ONE (09:14)
[2025-02-22] MEDS: D5W/SOD CHL 0.45%/KCL 20MEQ 1,000 ML IV SCH (09:55)
--- NOTE | 2025-02-22 10:30 | DVHPN2 ---
Progress Note Date Seen: Feb 22, 2025 Medical Necessity Reason Pt with a Central, PICC or Fol: No Subjective Patient reports: No new complaints Review of Systems: HEENT:Normal, CVS:Normal, RESPIRATORY:Normal, GI:Normal, :Normal, MSK:Normal, NEURO:Normal Objective vital signs Vital Sign Date Time Temp Pulse Resp B/P (MAP) Pulse Ox O2 Delivery O2 Flow Rate FiO2 02/22/25 05:00 97.5 82 17 107/59 (75) 97 97.5 02/21/25 20:00 Room Air* 0 21 Total Intake and Output 02/21/25 02/21/25 02/22/25 15:00 23:00 07:00 Intake Total 60 ml 0 ml Balance 60 ml 0 ml medications Current Medications Medications Dose Ordered Sig/Yazmin Route Start Time Stop Time Status Last Admin Dose Admin Pantoprazole Sodium 40 mg DAILY IV 02/21/25 10:00 02/22/25 09:52 40 MG Acetaminophen 650 mg Q6HP PRN PO 02/21/25 00:00 02/21/25 05:22 650 MG Morphine Sulfate 2 mg Q4HPRN PRN IV 02/21/25 00:00 Potassium Chloride/Dextrose/ Sod Cl 1,000 ml @ 100 mls/hr Q10H IV 02/22/25 08:30 02/22/25 09:55 100 MLS/HR Ondansetron HCl 4 mg Q4HPRN PRN IV 02/22/25 08:45 Ceftriaxone Sodium 50 ml @ 100 mls/hr DAILY@09 IV 02/23/25 09:00 Azithromycin 250 ml @ 125 mls/hr DAILY IV 02/23/25 10:00 Metronidazole 100 ml @ 100 mls/hr Q8HR IV 02/22/25 14:00 Albuterol 2.5 mg Q6HWA NEB 02/22/25 12:00 Ipratropium [place] 0.5 mg Q6HWA NEB 02/22/25 12:00 Examination: GENERAL:Normal, HEENT:Normal, NECK:Normal, LUNGS:Normal, CVS:Normal, ABDOMEN:Normal, MSK:Normal, SKIN:Normal, NEURO:Normal, :Normal laboratory and microbiology Laboratory Tests 02/22/25 05:05 Test 02/22/25 05:05 Range/Units Serum Glucose 99 74-106 mg/dL Microbiology Date/Time Source Procedure Growth Status 02/20/25 15:42 Blood Blood Culture - Preliminary NO GROWTH AFTER 24 HOURS OF INCUBATION. Resulted Problem List/Assessment/Plan Problem List/Assessment/Plan #1 ?pneumonia: iv antibiotics, ivf #2 abd pain: egd today, ppi #3 s/p syncopy/dehydration: ivf #4 hypokalemia: replace Plan discussed with: Patient, Spouse My Orders My Orders Orders - DORIAN READ MD Procedure Category Date Status Time Ceftriaxone 1gm/50ml PHA 02/23/25 In Process D5w (Rocephin) 09:00 Ceftriaxone 1gm/50ml PHA 02/22/25 In Process D5w (Rocephin) 10:30 Azithromycin 500mg/ PHA 02/23/25 In Process 250ml (Zithromax 50 10:00 Azithromycin 500mg/ PHA 02/22/25 In Process 250ml (Zithromax 50 10:30 Metronidazole PHA 02/22/25 In Process 500mg/100ml (Flagyl 14:00 Albuterol Medneb PHA 02/22/25 In Process (Ventolin Medneb) 12:00 Ipratropium Medneb PHA 02/22/25 In Process (Atrovent Medneb) 12:00 Chest Portable XY 02/22/25 Verified 10:26 Potassium Er Tablet PHA 02/22/25 Verified (Klor-Con Tablet) 10:30 Respiratory Culture ALEJA 02/22/25 Verified W/ Gs 10:26 Date of Service: Feb 22, 2025 Billing Provider: DORIAN READ MD Common Visit Codes: [id number] INP/OBS CARE(HIGH) DORIAN READ MD Feb 22, 2025 10:30
--- NOTE | 2025-02-22 10:40 | ECG ---
[facility] Test Date: 2025-02-20 Test Time: 17:27:15 Pat Name: SIVAN ABRAMS Department: ED Room: 0205 A Gender: F Chip Unloader: DANIELE : 1975 Requested By: YANG REBOLLEDO Order Number: [id number] Reading MD: Francisco Dominguez Measurements Intervals [place] Rate: 92 P: 46 OR: 153 QRS: 31 QRSD: 65 T: -89 QT: 398 QTc: 493 Interpretive Statements Sinus rhythm Nonspecific T abnormalities, diffuse leads Borderline prolonged QT interval Baseline wander in lead(s) II,aVR,aVF,V1,V2,V5,V6 Electronically Signed On 02-24-2025 21:58:54 PDT by Francisco Dominguez Please click the below link to view image of tracing.
[2025-02-22] MEDS: cefTRIAXone 1GM/50ML D5W 50 ML IV ONE (11:17)
[2025-02-22] MEDS: AZITHROMYCIN 500MG/ 250ML 250 ML IV ONE (13:11)
[2025-02-22] MEDS: LIDOCAINE VISCOUS 2% 15ML UD ONE (14:13)
[2025-02-22] MEDS: MIDAZOLAM HCL 5 MG/ML-1ML VIAL ONE (14:16)
[2025-02-22] MEDS: fentaNYL CITRATE 100 MCG/2 ML VL ONE (14:16)
[2025-02-22] MEDS: diphenhdrAMINE HCL 50 MG/1 ML VL ONE (14:16)
--- NOTE | 2025-02-22 14:35 | DVHOP2 ---
Operative Report DATE OF OPERATION: 02/22/25 PROCEDURE: Upper Endoscopy with biopsy. PREOPERATIVE INDICATION: The patient is a 49 -year-old female undergoing endoscopy for nausea vomiting and abdominal pain POSTOPERATIVE DIAGNOSES: 1. Slightly irregular squamocolumnar junction with 5 mm extension of columnar epithelium into the distal esophagus focal area of grade A esophagitis from which biopsies were obtained 2. Minimal gastritis otherwise normal examination up to the 2nd and 3rd part of the duodenum with good bile drainage and no active bleeding PROCEDURE PERFORMED BY: José Murray GI NURSE: Geetha SCOPE: Olympus videoendoscope. ASA CLASS: 22 PREOPERATIVE MEDICATIONS: Versed 3 mg, Fentanyl 100 mcg, Benadryl 50 mg I administered moderate sedation throughout this _10_ minutes procedure. An independent trained observer pushed medications at my direction, and monitored the patient's level of consciousness and physiological status throughout. PROCEDURE IN DETAIL: After obtaining an informed consent, the patient was placed on left lateral decubitus position. The patient was then sedated with the above medications. A bite block was placed between her teeth. The endoscope was then passed through the oropharynx, into the esophagus, and through the stomach and pylorus up to the second and third part of the duodenum. The endoscope was then withdrawn. The 2nd and 3rd part of the duodenum and the duodenal bulb were normal. There was good bile drainage. Duodenal biopsies were obtained The pre-pyloric area antrum and body showed minimal gastritis. Gastric biopsies were obtained. On retroflexion the fundus and cardia were normal The endoscope was then withdrawn into the distal esophagus where she had a slightly irregular squamocolumnar junction with 5 mm extension of columnar epithelium into the distal esophagus There was a focal area suggestive of mild esophagitis or reflux. GE junction biopsies were obtained. The remaining distal and proximal esophagus and oropharynx were unremarkable The patient tolerated the procedure well without difficulty. COMPLICATIONS : None SPECIMENS: Duodenal biopsies Gastric biopsies GE junction biopsies DISPOSITION: Transfer back to the floor Stable PLAN: 1. Await for biopsy result 2. Will place pt on Protonix 40 mg bid 3. Carafate 1 g p.o. twice a day 4. Zofran as needed for nausea vomiting 5. Resume soft mechanical diet advance as tolerated JOSÉ MURRAY MD Feb 22, 2025 14:35
[2025-02-22] MEDS: POTASSIUM CHL 20 Meq TABLET PO ONE (16:00)
--- NOTE | 2025-02-22 16:40 | DVH ---
CHEST RADIOGRAPH Indication: PNEUMONIA Technique: Single frontal view of the chest was obtained Comparison: XY CHEST PORTABLE on DOS: 02/20/25 FINDINGS: Lines and Tubes: None Lungs: No focal consolidation. Pleura: No effusion. No pneumothorax. Cardiomediastinal contours: Unremarkable Bones: No acute osseous abnormality. IMPRESSION: 1. No acute cardiopulmonary disease.
[2025-02-22] MEDS: metroNIDAZOLE 500MG/100ML 100 ML IV SCH (17:40)
[2025-02-22] MEDS: ALBUTEROL SULF 2.5 MG/0.5ML(0.5%) NEB SOLN NEB SCH (18:37)
[2025-02-22] MEDS: IPRATROPIUM BROM 0.5 MG/2.5ML INH SOL NEB SCH (18:37)
[2025-02-22] MEDS: SUCRALFATE 1 GM/10 ML ORAL SUSP PO SCH (21:18)
[2025-02-23] VITALS (12 sets, daily range): BP systolic 95–119; BP diastolic 51–69; PULSE 67–98; RESP 16–18; TEMP 97.9–98.2; O2SAT 96–100
[2025-02-23] MEDS: cefTRIAXone 1GM/50ML D5W 50 ML IV SCH (09:03)
[2025-02-23] MEDS: AZITHROMYCIN 500MG/ 250ML 250 ML IV SCH (09:04)
--- NOTE | 2025-02-23 09:51 | DVHPN2 ---
Progress Note Date Seen: Feb 23, 2025 Medical Necessity Reason Pt with a Central, PICC or Fol: No Subjective Patient reports: No new complaints Review of Systems: HEENT:Normal, CVS:Normal, RESPIRATORY:Normal, GI:Normal, :Normal, MSK:Normal, NEURO:Normal Objective vital signs Vital Sign Date Time Temp Pulse Resp B/P (MAP) Pulse Ox O2 Delivery O2 Flow Rate FiO2 02/23/25 09:00 98.2 98 16 99/62 (74) 98 98.2 02/23/25 07:43 Room Air* 0 21 Total Intake and Output 02/22/25 02/22/25 02/23/25 15:00 23:00 07:00 Intake Total 400 ml 550 ml 1400 ml Balance 400 ml 550 ml 1400 ml medications Current Medications Medications Dose Ordered Sig/Yazmin Route Start Time Stop Time Status Last Admin Dose Admin Pantoprazole Sodium 40 mg DAILY IV 02/21/25 10:00 02/23/25 09:03 40 MG Acetaminophen 650 mg Q6HP PRN PO 02/21/25 00:00 02/21/25 05:22 650 MG Morphine Sulfate 2 mg Q4HPRN PRN IV 02/21/25 00:00 Potassium Chloride/Dextrose/ Sod Cl 1,000 ml @ 100 mls/hr Q10H IV 02/22/25 08:30 02/23/25 05:59 100 MLS/HR Ondansetron HCl 4 mg Q4HPRN PRN IV 02/22/25 08:45 Ceftriaxone Sodium 50 ml @ 100 mls/hr DAILY@09 IV 02/23/25 09:00 02/23/25 09:03 100 MLS/HR Azithromycin 250 ml @ 125 mls/hr DAILY IV 02/23/25 10:00 02/23/25 09:04 125 MLS/HR Metronidazole 100 ml @ 100 mls/hr Q8HR IV 02/22/25 14:00 02/23/25 05:52 100 MLS/HR Albuterol 2.5 mg Q6HWA NEB 02/22/25 12:00 02/23/25 05:54 2.5 MG Ipratropium [place] 0.5 mg Q6HWA NEB 02/22/25 12:00 02/23/25 05:54 0.5 MG Examination: GENERAL:Normal, HEENT:Normal, NECK:Normal, LUNGS:Normal, CVS:Normal, ABDOMEN:Normal, MSK:Normal, SKIN:Normal, NEURO:Normal, :Normal laboratory and microbiology Laboratory Tests 02/22/25 05:05 Test 02/22/25 05:05 Range/Units Serum Glucose 99 74-106 mg/dL Microbiology Date/Time Source Procedure Growth Status 02/20/25 15:42 Blood Blood Culture - Preliminary NO GROWTH AFTER 48 HOURS OF INCUBATION. Resulted Problem List/Assessment/Plan Problem List/Assessment/Plan #1 ?pneumonia: iv antibiotics, ivf #2 abd pain/ esophagitis: ppi #3 s/p syncopy/dehydration: ivf #4 hypokalemia: replace Plan discussed with: Patient My Orders My Orders Orders - DORIAN READ MD Procedure Category Date Status Time Ceftriaxone 1gm/50ml PHA 02/23/25 In Process D5w (Rocephin) 09:00 Azithromycin 500mg/ PHA 02/23/25 In Process 250ml (Zithromax 50 10:00 Metronidazole PHA 02/22/25 In Process 500mg/100ml (Flagyl 14:00 Albuterol Medneb PHA 02/22/25 In Process (Ventolin Medneb) 12:00 Ipratropium Medneb PHA 02/22/25 In Process (Atrovent Medneb) 12:00 Chest Portable XY 02/22/25 Resulted 10:26 Respiratory Culture ALEJA 02/22/25 In Process W/ Gs 10:26 Regular Diet DIET 02/23/25 Transmitted Lunch Dietary Evaluation Review Comments: followup with [facility] Expected Outcomes/Goals: recover to a normal GI function Date of Service: Feb 23, 2025 Billing Provider: DORIAN READ MD Common Visit Codes: [id number] INP/OBS CARE(HIGH) DORIAN READ MD Feb 23, 2025 09:51
[2025-02-23] MEDS: D5W/SOD CHL 0.45%/KCL 20MEQ 1,000 ML IV SCH (10:27)
--- NOTE | 2025-02-23 18:05 | DVHPN2 ---
Progress Note - Dictate Date Seen: Feb 23, 2025 Medical Necessity Reason Pt with a Central, PICC or Fol: No Subjective Patient feels better She is still somewhat nauseous with a poor appetite Patient had a loose bowel movement today without any bleeding Mild residual abdominal tenderness vital signs Vital Sign Date Time Temp Pulse Resp B/P (MAP) Pulse Ox O2 Delivery O2 Flow Rate FiO2 02/23/25 17:00 98.1 80 18 112/67 (82) 98 98.1 02/23/25 12:31 Room Air 0.0 02/23/25 12:31 21 Total Intake and Output 02/22/25 02/22/25 02/23/25 15:00 23:00 07:00 Intake Total 400 ml 550 ml 1400 ml Balance 400 ml 550 ml 1400 ml medications Current Medications Medications Dose Ordered Sig/Yazmin Route Start Time Stop Time Status Last Admin Dose Admin Pantoprazole Sodium 40 mg DAILY IV 02/21/25 10:00 02/23/25 09:03 40 MG Acetaminophen 650 mg Q6HP PRN PO 02/21/25 00:00 02/21/25 05:22 650 MG Morphine Sulfate 2 mg Q4HPRN PRN IV 02/21/25 00:00 Ondansetron HCl 4 mg Q4HPRN PRN IV 02/22/25 08:45 Ceftriaxone Sodium 50 ml @ 100 mls/hr DAILY@09 IV 02/23/25 09:00 02/23/25 09:03 100 MLS/HR Metronidazole 100 ml @ 100 mls/hr Q8HR IV 02/22/25 14:00 02/23/25 13:20 100 MLS/HR Albuterol 2.5 mg Q6HWA NEB 02/22/25 12:00 02/23/25 12:31 2.5 MG Ipratropium [place] 0.5 mg Q6HWA NEB 02/22/25 12:00 02/23/25 12:31 0.5 MG Potassium Chloride/Dextrose/ Sod Cl 1,000 ml @ 75 mls/hr [id number] IV 02/23/25 10:00 02/23/25 10:27 75 MLS/HR Azithromycin 500 mg DAILY PO 02/24/25 10:00 objective Gen: 49-year-old female in no distress; awake alert in no acute distress Skin: Warm, dry, normal color and texture, no rash. HEENT: Normocephalic atraumatic, mucous membranes moist and pink. Neck: Cervical and supraclavicular nodes normal without enlargement, trachea is midline, thyroid gland is normal without masses. Pulmonary: Clear to auscultation and percussion bilaterally. Cardiac: Regular rate and rhythm. No murmur Abdomen: Soft, nontender, minimally distended, bowel sounds present all 4 quadrants, no guarding, no rigidity, no organomegaly. Extremities: No cyanosis, clubbing, no edema Neuro: Cranial nerves II through XII grossly intact, normal affect and speech, no focal motor deficits. laboratory and microbiology Laboratory Tests 02/22/25 05:05 Test 02/22/25 05:05 Range/Units Serum Glucose 99 74-106 mg/dL Problems(with codes): (1) URI with cough and congestion (2) Gastroenteritis (3) Abdominal pain of unknown etiology (4) Nausea and vomiting (5) Dehydration (6) Near syncope Prognosis Plan Advance diet as tolerated I will discontinue Flagyl as that might be affecting her appetite and causing her nausea Her appendix ultrasound was nondiagnostic as the appendix could not be visualized On her CT her appendix appeared to be normal and her white count is normal Continue supportive care IV antibiotics for suspected URI or pneumonia Continue Protonix 40 mg p.o. daily Carafate 1 g p.o. twice a day or q.h.s. Supportive care Await biopsy results Dietary Evaluation Review Comments: followup with [facility] Expected Outcomes/Goals: recover to a normal GI function Plan discussed with: Patient JOSÉ BREEN MD Feb 23, 2025 18:04
[2025-02-24 01:00] VITALS: BP 101/66; PULSE 93; RESP 18; TEMP 97.9; O2SAT 98
[2025-02-24 05:00] VITALS: BP 109/66; PULSE 74; RESP 18; TEMP 98.1; O2SAT 97
[2025-02-24 07:55] LABS: Chloride 107 mmol/L (98-107); Potassium 3.5 mmol/L (3.5-5.1); Sodium 137 mmol/L (136-145)
[2025-02-24 07:56] LABS: Anion Gap 10 (5-15); Carbon Dioxide 20 mmol/L (20-31)
[2025-02-24 07:57] LABS: Calcium 9.4 mg/dL (8.7-10.4)
[2025-02-24 08:10] LABS: BUN/Creatinine Ratio 8.3 (10.0-20.0); Blood Urea Nitrogen < 5 mg/dL (9-23); Glucose 131 mg/dL (74-106)
[2025-02-24 08:18] LABS: Basophils # (auto) 0 10 ^3/uL (0-0.2); Basophils % (auto) 0.4 % (0.0-2.0); Eosinophils # (auto) 0.1 10 ^3/uL (0-0.8); Eosinophils % (auto) 1.6 % (0.0-7.0); Hematocrit 37.6 % (36.0-46.0); Hemoglobin 12.8 g/dL (12.2-16.2); Lymphocytes # (auto) 1.9 10 ^3/uL (0.4-5.4); Lymphocytes % (auto) 41.2 % (10.0-50.0); Mean Corpuscular Hemoglobin 31.2 pg (28.0-32.0); Mean Corpuscular Hgb Conc. 34.1 g/dL (32.0-36.0); Mean Corpuscular Volume 91.5 fL (80.0-100.0); Monocytes # (auto) 0.3 10 ^3/uL (0-1.3); Monocytes % (auto) 7.2 % (0.0-12.0); Neutrophils # (auto) 2.3 10 ^3/uL (1.6-8.6); Neutrophils % (auto) 49.6 % (37.0-80.0); Nucleated Red Blood Cells % 0.1 %; Platelet Count (auto) 165 10^3/uL (140-450); Red Blood Cells 4.11 10^6/uL (4.0-5.20); White Blood Cell 4.7 10^3/uL (4.4-10.8)
[2025-02-24 09:02] VITALS: BP 127/78; PULSE 87; RESP 17; TEMP 98; O2SAT 97
[2025-02-24] MEDS ORDERED: ZOFR4T PO (09:47)
[2025-02-24] MEDS ORDERED: SUCR1TAB31 OR (09:47)
[2025-02-24] MEDS ORDERED: AZITTAB PO (09:47)
[2025-02-24] MEDS ORDERED: PANT40TA2 PO (09:47)
[2025-02-24] MEDS: AZITHROMYCIN 250 MG TAB PO SCH (09:49)
--- NOTE | 2025-02-24 09:56 | DVHDS2 ---
Discharge Summary Date of Admission Feb 22, 2025 at 09:11 Date of Discharge: Feb 24, 2025 Labs/Diagnostic Data: Laboratory Results Test 02/24/25 06:40 02/22/25 05:05 02/20/25 19:17 02/20/25 19:13 White Blood Count 4.7 10^3/uL (4.4-10.8) Red Blood Count 4.11 10^6/uL (4.0-5.20) Hemoglobin 12.8 g/dL (12.2-16.2) Hematocrit 37.6 % (36.0-46.0) Mean Corpuscular Volume 91.5 fL (80.0-100.0) Mean Corpuscular Hemoglobin 31.2 pg (28.0-32.0) Mean Corpuscular Hemoglobin Concent 34.1 g/dL (32.0-36.0) Red Cell Distribution Width 13.0 % (11.8-14.3) Platelet Count 165 10^3/uL (140-450) Mean Platelet Volume 8.7 fL (6.9-10.8) Neutrophils (%) (Auto) 49.6 % (37.0-80.0) Lymphocytes (%) (Auto) 41.2 % (10.0-50.0) Monocytes (%) (Auto) 7.2 % (0.0-12.0) Eosinophils (%) (Auto) 1.6 % (0.0-7.0) Basophils (%) (Auto) 0.4 % (0.0-2.0) Neutrophils # (Auto) 2.3 10 ^3/uL (1.6-8.6) Lymphocytes # (Auto) 1.9 10 ^3/uL (0.4-5.4) Monocytes # (Auto) 0.3 10 ^3/uL (0-1.3) Eosinophils # (Auto) 0.1 10 ^3/uL (0-0.8) Basophils # (Auto) 0 10 ^3/uL (0-0.2) Nucleated Red Blood Cells 0.1 % Sodium Level 137 mmol/L (136-145) Potassium Level 3.5 mmol/L (3.5-5.1) Chloride Level 107 mmol/L (98-107) Carbon Dioxide Level 20 mmol/L (20-31) Anion Gap 10 (5-15) Blood Urea Nitrogen < 5 mg/dL (9-23) Creatinine 0.60 mg/dL (0.550-1.02) Glomerular Filtration Rate Calc 111 mL/min (>90) BUN/Creatinine Ratio 8.3 (10.0-20.0) Serum Glucose 131 mg/dL (74-106) Calcium Level 9.4 mg/dL (8.7-10.4) Differential Total Cells Counted 100.0 (100) Neutrophils % (Manual) 29 (37.0-80.0) Band Neutrophils % (Manual) 0 Lymphocytes % (Manual) 63 (10.0-50.0) Monocytes % (Manual) 8 (0-12) Eosinophils % (Manual) 0 (0-7) Basophils % (Manual) 0 (0.0-2.0) Metamyelocytes % (manual) 0 Myelocytes % (Manual) 0 Promyelocytes % (Manual) 0 Blast Cells % (Manual) 0 Reactive Lymphocytes 0 Platelet Estimate Adequate Prothrombin Time 10.9 sec (9.3-11.8) Prothrombin Time INR 1.03 (0.9-1.15) Activated Partial Thromboplast Time 28.8 SEC (24.5-34.5) Magnesium Level 2.3 mg/dL (1.6-2.6) Total Bilirubin 0.4 mg/dL (0.2-1.0) Aspartate Amino Transferase (AST) 18 U/L (13-40) Alanine Aminotransferase (ALT) 24 U/L (7-40) Alkaline Phosphatase 62 U/L (46-116) Total Protein 6.7 g/dL (5.7-8.2) Albumin 4.6 g/dL (3.2-4.8) Urine Color Light-yellow (Yellow) Urine Clarity Clear (Clear) Urine pH 6.0 (5.0-9.0) Urine Specific [place] 1.019 (1.001-1.035) Urine Protein Negative (Negative) Urine Ketones 4+ (Negative) Urine Blood 3+ /uL (Negative) Urine Nitrite Negative (Negative) Urine Bilirubin Negative (Negative) Urine Urobilinogen Normal mg/dL (Negative) Urine Leukocyte Esterase Negative /uL (Negative) Urine RBC 102 /hpf (0 - 4) Urine Microscopic WBC < 1 /HPF (0-5) Urine Squamous Epithelial Cells Few /hpf (<5) Urine Bacteria None seen /hpf (None Seen) Urine Mucus Few (None Seen) Urine Glucose Normal mg/dL (Normal) Urine Test Negative (Negative) Troponin I High Sensitivity < 3 ng/L (</=34) Test 02/20/25 17:11 02/20/25 15:45 02/20/25 15:42 Influenza Type A Antigen Negative (Negative) Influenza Type B Antigen Negative (Negative) SARS-CoV-2 Antigen (Rapid) Negative (NEGATIVE) POC Glucose 97 mg/dl (70-106) Lactic Acid Level 0.8 mmol/L (0.4-2.0) B-Type Natriuretic Peptide 3.15 pg/mL (0-100) Lipase 33 U/L (12-53) Other Laboratory Tests 02/24/25 06:40 Brief Hx & Hospital Course: Final diagnoses: Dehydration Intractable N/V Acute Viral syndrome Hypokalemia Syncope Abdominal pain GERD Acute gastritis Mixed hyperlipidemia She was admitted due to weakness, N/V, abdominal pain, cough and fever x 1 week She had a syncope at home after vomiting and coughing Blood cultures: Neg Sputum Cx: Pending CT abdomen, US of gallbladder and appendix: Neg She was hydrated with IV fluids, given IV antibiotics, zofran, Protonix Weakness improved with hydration Potassium replaced GI recommended EGD: Mild esophagitis and gastritis, biopsies done: pending Overall she is improving She still had nausea this morning, stopped IV antibiotics DC IVF DC home on: Z-Adan Carafate Zofran Protonix Condition at Discharge: Stable Final Diagnosis/Problems List Dehydration Intractable N/V Acute Viral syndrome Hypokalemia Syncope Abdominal pain GERD Acute gastritis Mixed hyperlipidemia Discharge Disposition: Home SNF Discharge Will this Physician continue t: No Discharge Instruct/Medications Diet: Cardiac 2g Na,low cholest Activity: No Restrictions, As Tolerated Follow Up/Referral: PCP BESSIE Medications: Protonix 40 mg qd Zofran prn Z-Adan Carafate 1 gm bid Discharge Statement: "Patient was advised to return to the ER or call 911 if any headaches, dizziness, shortness of breath, chest pain, abdominal pain, bleeding, fevers, or worsening of medical condition. Patient was counseled about treatment plan, medications, possible side effects, patientverbalized understanding. All questions were answered to the best of my ability. This discharge took greater then 30 minutes in planning, reviewing documentation, counseling the patient, and discussing with other team members." ASSESSMENT ASSESSMENT Assessment Dehydration Intractable N/V Acute Viral syndrome Hypokalemia Syncope Abdominal pain GERD Acute gastritis Mixed hyperlipidemia Date of Service: Feb 24, 2025 Billing Provider: MIA WINCHESTER MD Common Visit Codes: NOT BILLABLE MIA WINCHESTER MD Feb 24, 2025 09:56
--- NOTE | 2025-02-24 12:30 | DVHPN2 ---
Progress Note - Dictate Date Seen: Feb 24, 2025 Medical Necessity Reason Pt with a Central, PICC or Fol: No Subjective Patient feels better She is still somewhat nauseous with a poor appetite Stopped IV Flagyl vital signs Vital Sign Date Time Temp Pulse Resp B/P (MAP) Pulse Ox O2 Delivery O2 Flow Rate FiO2 02/24/25 09:02 98.0 87 17 127/78 (94) 97 98.0 02/24/25 07:42 Room Air* 0 21 Total Intake and Output 02/23/25 02/23/25 02/24/25 15:00 23:00 07:00 Intake Total 775 ml 1140 ml 800 ml Balance 775 ml 1140 ml 800 ml medications Current Medications Medications Dose Ordered Sig/Yazmin Route Start Time Stop Time Status Last Admin Dose Admin Pantoprazole Sodium 40 mg DAILY IV 02/21/25 10:00 02/24/25 09:37 40 MG Acetaminophen 650 mg Q6HP PRN PO 02/21/25 00:00 02/21/25 05:22 650 MG Morphine Sulfate 2 mg Q4HPRN PRN IV 02/21/25 00:00 Ondansetron HCl 4 mg Q4HPRN PRN IV 02/22/25 08:45 Albuterol 2.5 mg Q6HWA NEB 02/22/25 12:00 02/23/25 18:10 2.5 MG Ipratropium [place] 0.5 mg Q6HWA NEB 02/22/25 12:00 02/23/25 18:10 0.5 MG Azithromycin 500 mg DAILY PO 02/24/25 10:00 objective Gen: 49-year-old female in no distress; awake alert in no acute distress Skin: Warm, dry, normal color and texture, no rash. HEENT: Normocephalic atraumatic, mucous membranes moist and pink. Neck: Cervical and supraclavicular nodes normal without enlargement, trachea is midline, thyroid gland is normal without masses. Pulmonary: Clear to auscultation and percussion bilaterally. Cardiac: Regular rate and rhythm. No murmur Abdomen: Soft, nontender, minimally distended, bowel sounds present all 4 quadrants, no guarding, no rigidity, no organomegaly. Extremities: No cyanosis, clubbing, no edema Neuro: Cranial nerves II through XII grossly intact, normal affect and speech, no focal motor deficits. laboratory and microbiology Laboratory Tests 02/24/25 06:40 Test 02/24/25 06:40 Range/Units Serum Glucose 131 H 74-106 mg/dL Problems(with codes): (1) URI with cough and congestion (2) Upper respiratory infection (3) Gastroenteritis (4) Abdominal pain of unknown etiology Prognosis PLAN Discharge planning in progress DC IVF DC home on: Z-Daan Carafate Zofran Protonix Outpt follow up with me in 4-6 weeks for elective colonoscopy Dietary Evaluation Review Comments: followup with [facility] Expected Outcomes/Goals: recover to a normal GI function Plan discussed with: Patient JOSÉ BREEN MD Feb 24, 2025 12:30
[2025-02-24 13:00] VITALS: BP 120/79; PULSE 81; RESP 19; TEMP 98.1; O2SAT 98
[2025-02-24] MEDS ORDERED: IOHEXOL 350 MG/ML 100ML IJ ONE (13:42)
--- NOTE | 2025-02-24 13:57 | DVH ---
Bilateral lower extremity venous duplex Clinical History: hemoptysis Comparison: None Technique: Duplex Doppler evaluation of the deep venous systems of both lower extremities from the common femora l veins to the popliteal veins including color Doppler and spectral/pulsed waveform analysis was perf ormed. Findings: RIGHT SIDE: The common femoral vein demonstrates appropriate compressibility and waveform variability. There is compressibility/patency of the great saphenous vein at the proximal thigh. The femoral vein demonstrates appropriate compressibility and waveform variability. The deep femoral vein demonstrates appropriate compressibility and waveform variability. The popliteal vein demonstrates appropriate compressibility and waveform variability. There is normal compressibility at the tibioperoneal trunk. LEFT SIDE: The common femoral vein demonstrates appropriate compressibility and waveform variability. There is compressibility/patency of the great saphenous vein at the proximal thigh. The femoral vein demonstrates appropriate compressibility and waveform variability. The deep femoral vein demonstrates appropriate compressibility and waveform variability. The popliteal vein demonstrates appropriate compressibility and waveform variability. There is normal compressibility at the tibioperoneal trunk. Impression: No right or left femoropopliteal venous thrombosis.
--- NOTE | 2025-02-24 14:26 | DVH ---
CTA CHEST INDICATION: hemoptysis TECHNIQUE: Multidetector CTA of the chest was performed of the chest with 100 cc of intravenous contr ast. PULMONARY ANGIOGRAPHY PROTOCOL was utilized using a bolus-tracking technique centered on the marisela n pulmonary artery. Axial, coronal and sagittal multiplanar and MIP reformats were performed. Radiation Dose Information: CT Dose: CTDI volume is 7.57 mGy. Dose-length product is 245.44 mGy*cm The dose indicators for CT are the volume Computed Tomography (CT) Dose Index (CTDIvol) and the Dose Length Product (DLP), and are measured in units of mGy and mGy-cm, respectively. These indicators are not patient dose, but values generated from the CT scanner acquisition factors. The report includes radiation exposure data for exposures received during this examination. Comparison: None Findings: Pulmonary artery: There is no evidence of a pulmonary arterial filling defect to suggest pulmonary e mbolism. The main pulmonary artery demonstrates normal caliber. Lungs/Pleura: No focal consolidation, pulmonary mass, or suspicious pulmonary nodule. There is no pl eural effusion. Heart/Vascular Structures: Normal heart size. The thoracic aorta demonstrates normal caliber. There is no evidence of pericardial effusion. Lymph Nodes: There is no evidence of thoracic lymphadenopathy. Musculoskeletal: No acute osseous abnormality. Upper abdomen: Visualized upper abdominal structures appear within normal limits. IMPRESSION: No acute intrathoracic abnormality. There is no evidence of a pulmonary arterial filling defect to [place] ggest pulmonary embolism. HS:Y
[2025-02-24] MEDS: DOXYCYCLINE 100MG/100ML 100 ML IV ONE (14:39)
[2025-02-24] MEDS: guaiFENesin-DM 100/10mg/5ml SYR PO PRN (14:39)
[2025-02-24] MEDS ORDERED: DOXY1CAP57 PO (14:42)
[2025-02-24] MEDS ORDERED: DEXT1SYP9 PO (14:42)
--- NOTE | 2025-02-24 15:17 | DVHPN2 ---
Subjective After we decided to discharge the patient this morning she started coughing and then she had hemoptysis Changes from previous H/P or p: Changes Objective Vitals Vital Signs Date Time Temp Pulse Resp B/P (MAP) Pulse Ox O2 Delivery O2 Flow Rate FiO2 02/24/25 13:00 98.1 81 19 120/79 (93) 98 98.1 02/24/25 07:42 Room Air* 0 21 Intake/Output Intake and Output 02/24/25 07:00 Intake Total 2715 ml Balance 2715 ml Intake Oral 940 ml IV Total 1775 ml # Voids 1 General Appearance: Alert, Oriented X3, Cooperative, moderate distress Lungs: Clear to auscultation, Normal air movement Cardiovascular: Regular rate, Normal S1, Normal S2, No murmurs Abdomen: Normal bowel sounds, Soft, Other (Severe tenderness RLQ and epigastric area) Medications Current Medications Medications Dose Ordered Sig/Yazmin Route Start Time Stop Time Status Last Admin Dose Admin Pantoprazole Sodium 40 mg DAILY IV 02/21/25 10:00 02/24/25 09:37 40 MG Acetaminophen 650 mg Q6HP PRN PO 02/21/25 00:00 02/21/25 05:22 650 MG Morphine Sulfate 2 mg Q4HPRN PRN IV 02/21/25 00:00 Ondansetron HCl 4 mg Q4HPRN PRN IV 02/22/25 08:45 Albuterol 2.5 mg Q6HWA [facility] 02/22/25 12:00 02/23/25 18:10 2.5 MG Ipratropium [place] 0.5 mg Q6HWA NEB 02/22/25 12:00 02/23/25 18:10 0.5 MG Doxycycline Hyclate 100 ml @ 50 mls/hr Q12HR IV 02/24/25 22:00 Guaifenesin/ Dextromethorphan 10 ml Q4HP PRN PO 02/24/25 13:45 02/24/25 14:39 10 ML Laboratory Results Laboratory Tests 02/24/25 06:40 Chemistry Test 02/24/25 06:40 Calcium Level 9.4 mg/dL (8.7-10.4) Urinalysis Test 02/20/25 19:17 Urine Color Light-yellow (Yellow) Urine Clarity Clear (Clear) Urine pH 6.0 (5.0-9.0) Urine Specific [place] 1.019 (1.001-1.035) Urine Protein Negative (Negative) Urine Ketones 4+ (Negative) H Urine Blood 3+ /uL (Negative) H Urine Nitrite Negative (Negative) Urine Bilirubin Negative (Negative) Urine Urobilinogen Normal mg/dL (Negative) Urine Leukocyte Esterase Negative /uL (Negative) Urine RBC 102 /hpf (0 - 4) Urine Microscopic WBC < 1 /HPF (0-5) Urine Squamous Epithelial Cells Few /hpf (<5) Urine Bacteria None seen /hpf (None Seen) Urine Mucus Few (None Seen) Urine Glucose Normal mg/dL (Normal) Urine Test Negative (Negative) Microbiology Microbiology Date/Time Source Procedure Growth Status 02/22/25 20:30 Sputum Gram Stain - Final Resulted 02/22/25 20:30 Sputum Respiratory Culture - Preliminary Resulted 02/20/25 15:42 Blood Blood Culture - Preliminary NO GROWTH AFTER 72 HOURS OF INCUBATION. Resulted Assessment/Plan Assessment/Plan Intractable nausea and vomiting Abdominal pain Dehydration Acute viral syndrome h/o GERD Mixed hyperlipidemia PLAN: IV fluids: D51/2 NS NPO Order abd US to rule out gallbladder disease vs appendicitis G. Surgery consult GI consult IV Protonix IV Zofran is not effective, Add Reglan IV prn 02/24/2025: Hemoptysis: Get a CTA of the chest to rule out PE and a Doppler of the legs to rule out DVT Change antibiotics to IV doxycycline Robitussin DM p.r.n. for cough The rest of the management will depend on result of the above mentioned tests Plan discussed with: Patient My Orders Orders - MIA WINCHESTER MD Procedure Category Date Status Time Ct Angio Chest CT 02/24/25 Resulted Contrast 12:02 Bilat Lower Dvt US 02/24/25 Resulted 12:04 Doxycycline PHA 02/24/25 In Process 100mg/100ml 22:00 Doxycycline PHA 02/24/25 In Process 100mg/100ml 13:45 Guaifenesin-Dextromet PHA 02/24/25 In Process Liquid (Robitussin 13:45 Date of Service: Feb 24, 2025 Billing Provider: MIA WINCHESTER MD Common Visit Codes: NOT BILLABLE MIA WINCHESTER MD Feb 24, 2025 15:17
[2025-02-24 17:00] VITALS: BP 106/75; PULSE 91; RESP 18; TEMP 98.3; O2SAT 98
--- NOTE | 2025-02-24 17:50 | DVHDS2 ---
Discharge Summary Date of Admission Feb 22, 2025 at 09:11 Date of Discharge: Feb 24, 2025 Labs/Diagnostic Data: Laboratory Results Test 02/24/25 06:40 02/22/25 05:05 02/20/25 19:17 02/20/25 19:13 White Blood Count 4.7 10^3/uL (4.4-10.8) Red Blood Count 4.11 10^6/uL (4.0-5.20) Hemoglobin 12.8 g/dL (12.2-16.2) Hematocrit 37.6 % (36.0-46.0) Mean Corpuscular Volume 91.5 fL (80.0-100.0) Mean Corpuscular Hemoglobin 31.2 pg (28.0-32.0) Mean Corpuscular Hemoglobin Concent 34.1 g/dL (32.0-36.0) Red Cell Distribution Width 13.0 % (11.8-14.3) Platelet Count 165 10^3/uL (140-450) Mean Platelet Volume 8.7 fL (6.9-10.8) Neutrophils (%) (Auto) 49.6 % (37.0-80.0) Lymphocytes (%) (Auto) 41.2 % (10.0-50.0) Monocytes (%) (Auto) 7.2 % (0.0-12.0) Eosinophils (%) (Auto) 1.6 % (0.0-7.0) Basophils (%) (Auto) 0.4 % (0.0-2.0) Neutrophils # (Auto) 2.3 10 ^3/uL (1.6-8.6) Lymphocytes # (Auto) 1.9 10 ^3/uL (0.4-5.4) Monocytes # (Auto) 0.3 10 ^3/uL (0-1.3) Eosinophils # (Auto) 0.1 10 ^3/uL (0-0.8) Basophils # (Auto) 0 10 ^3/uL (0-0.2) Nucleated Red Blood Cells 0.1 % Sodium Level 137 mmol/L (136-145) Potassium Level 3.5 mmol/L (3.5-5.1) Chloride Level 107 mmol/L (98-107) Carbon Dioxide Level 20 mmol/L (20-31) Anion Gap 10 (5-15) Blood Urea Nitrogen < 5 mg/dL (9-23) Creatinine 0.60 mg/dL (0.550-1.02) Glomerular Filtration Rate Calc 111 mL/min (>90) BUN/Creatinine Ratio 8.3 (10.0-20.0) Serum Glucose 131 mg/dL (74-106) Calcium Level 9.4 mg/dL (8.7-10.4) Differential Total Cells Counted 100.0 (100) Neutrophils % (Manual) 29 (37.0-80.0) Band Neutrophils % (Manual) 0 Lymphocytes % (Manual) 63 (10.0-50.0) Monocytes % (Manual) 8 (0-12) Eosinophils % (Manual) 0 (0-7) Basophils % (Manual) 0 (0.0-2.0) Metamyelocytes % (manual) 0 Myelocytes % (Manual) 0 Promyelocytes % (Manual) 0 Blast Cells % (Manual) 0 Reactive Lymphocytes 0 Platelet Estimate Adequate Prothrombin Time 10.9 sec (9.3-11.8) Prothrombin Time INR 1.03 (0.9-1.15) Activated Partial Thromboplast Time 28.8 SEC (24.5-34.5) Magnesium Level 2.3 mg/dL (1.6-2.6) Total Bilirubin 0.4 mg/dL (0.2-1.0) Aspartate Amino Transferase (AST) 18 U/L (13-40) Alanine Aminotransferase (ALT) 24 U/L (7-40) Alkaline Phosphatase 62 U/L (46-116) Total Protein 6.7 g/dL (5.7-8.2) Albumin 4.6 g/dL (3.2-4.8) Urine Color Light-yellow (Yellow) Urine Clarity Clear (Clear) Urine pH 6.0 (5.0-9.0) Urine Specific [place] 1.019 (1.001-1.035) Urine Protein Negative (Negative) Urine Ketones 4+ (Negative) Urine Blood 3+ /uL (Negative) Urine Nitrite Negative (Negative) Urine Bilirubin Negative (Negative) Urine Urobilinogen Normal mg/dL (Negative) Urine Leukocyte Esterase Negative /uL (Negative) Urine RBC 102 /hpf (0 - 4) Urine Microscopic WBC < 1 /HPF (0-5) Urine Squamous Epithelial Cells Few /hpf (<5) Urine Bacteria None seen /hpf (None Seen) Urine Mucus Few (None Seen) Urine Glucose Normal mg/dL (Normal) Urine Test Negative (Negative) Troponin I High Sensitivity < 3 ng/L (</=34) Test 02/20/25 17:11 02/20/25 15:45 02/20/25 15:42 Influenza Type A Antigen Negative (Negative) Influenza Type B Antigen Negative (Negative) SARS-CoV-2 Antigen (Rapid) Negative (NEGATIVE) POC Glucose 97 mg/dl (70-106) Lactic Acid Level 0.8 mmol/L (0.4-2.0) B-Type Natriuretic Peptide 3.15 pg/mL (0-100) Lipase 33 U/L (12-53) Other Laboratory Tests 02/24/25 06:40 Brief Hx & Hospital Course: Final diagnoses: Dehydration Intractable N/V Acute Viral syndrome Hypokalemia Syncope Abdominal pain GERD Acute gastritis Mixed hyperlipidemia Hemoptysis due to acute bronchitis She was going to be discharged this am however she had an episode of hemoptysis CTA lungs: neg for PE No DVT Hemoptysis resolved DC home on: Doxycycline Robitussin DM Zofran Protonix Carafate Condition at Discharge: Stable Final Diagnosis/Problems List Dehydration Intractable N/V Acute Viral syndrome Hypokalemia Syncope Abdominal pain GERD Acute gastritis Mixed hyperlipidemia Hemoptysis due to acute bronchitis Discharge Disposition: Home SNF Discharge Will this Physician continue t: No Discharge Instruct/Medications Diet: Cardiac 2g Na,low cholest Activity: No Restrictions, As Tolerated Follow Up/Referral: PCP BESSIE Medications: Protonix 40 mg qd Zofran prn Doxycycline 100 mg bid Carafate 1 gm bid Robitussin DM prn Discharge Statement: "Patient was advised to return to the ER or call 911 if any headaches, dizziness, shortness of breath, chest pain, abdominal pain, bleeding, fevers, or worsening of medical condition. Patient was counseled about treatment plan, medications, possible side effects, patientverbalized understanding. All questions were answered to the best of my ability. This discharge took greater then 30 minutes in planning, reviewing documentation, counseling the patient, and discussing with other team members." ASSESSMENT ASSESSMENT Assessment Dehydration Intractable N/V Acute Viral syndrome Hypokalemia Syncope Abdominal pain GERD Acute gastritis Mixed hyperlipidemia Date of Service: Feb 24, 2025 Billing Provider: MAI WINCHESETR MD Common Visit Codes: 89392-LTS/OBS DISCH DAY <30MIN MIA WINCHESTER MD Feb 24, 2025 17:50
[2025-02-24] MEDS ORDERED: DOXYCYCLINE 100MG/100ML 100 ML IV SCH (22:00)
== END 2025-02-24 18:18 | disposition home or self-care (01) | DRG 866 ==
LOC: ER 14:56 → EEVIPCON 14:56 → OVERFLOW 23:51 → INTOOBSV 23:51 → OVERFLOW 23:55 → CENTRAL 02-21 01:32 → OBSVTOIN 02-22 09:11
PROVIDERS: ADMIT Internal Medicine Geriatric Medicine; ATTEND Internal Medicine Geriatric Medicine
PROC: 0DB68ZX Excision of Stomach, Via Natural or Artificial Opening Endoscopic, Diagnostic (ICD-10-PCS; 2025-02-22)
PROC: 0DB48ZX Excision of Esophagogastric Junction, Via Natural or Artificial Opening Endoscopic, Diagnostic (ICD-10-PCS; 2025-02-22)
PROC: 0DB98ZX Excision of Duodenum, Via Natural or Artificial Opening Endoscopic, Diagnostic (ICD-10-PCS; principal; 2025-02-22 14:10)
DX: B34.9 Viral infection, unspecified (principal); R04.2 Hemoptysis; K52.9 Noninfective gastroenteritis and colitis, unspecified; K21.00 Gastro-esophageal reflux disease with esophagitis, without bleeding; K29.00 Acute gastritis without bleeding; E86.0 Dehydration; E78.2 Mixed hyperlipidemia; E87.6 Hypokalemia; K59.00 Constipation, unspecified; R55 Syncope and collapse; Z20.822 Contact with and (suspected) exposure to COVID-19; J20.9 Acute bronchitis, unspecified; Z87.59 Personal history of other complications of pregnancy, childbirth and the puerperium; Z79.2 Long term (current) use of antibiotics; Z79.899 Other long term (current) drug therapy; Z87.11 Personal history of peptic ulcer disease
CPT/HCPCS: 36415; 71045; 71275; 74177; 76705; 80048; 80053; 81001; 81025; 82962; 83605; 83690; 83735; 83880; 84484; 85007; 85025; 85027; 85610; 85730; 86850; 86900; 86901; 87040; 87070; 87205; 87426; 87804; 93005; 93970; 94640; 96361; 96374; G0378; J2250; J2405; J2470; J3490